=== PATIENT | male | born 1965 | race Caucasian/White ===

== ENCOUNTER 2017-07-02 13:02 | Emergency (ER) | payer OTHER ==
--- NOTE | 2017-07-02 13:24 | ED ---
General Adult HPI - General Chief complaint: Abdominal Pain Stated complaint: Sent by PCP Time Seen by Provider: 07/02/17 13:24 Source: patient Mode of arrival: ambulatory Limitations: no limitations - History of Present Illness Initial comments: Bin is morbidly obese 52 yo male with PMH of epididymitis in the past who presents to the emergency department today for evaluation of scrotal pain. Patient reports that in the past after having episodes of diarrhea he has developed epididymitis, which is required antibiotic therapy. Patient reports that approximately 3 days ago he developed diarrhea which persisted throughout the day but has subsequently resolved. Yesterday evening he noticed some swelling and tenderness of his testicles, he elevated his testicles and applied ice. Patient reports that he went to work but his testicular pain continued to worsen so he sought care at a urgent care who advised him to come to the hospital for further imaging including ultrasound. Patient denies any fevers, chills, abdominal pain. 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 He denies any dysuria or hematuria. - Related Data Home Medications Medication Instructions Recorded Confirmed Atorvastatin [Lipitor] 10 mg PO DAILY 08/11/15 07/02/17 metFORMIN HCL [Glucophage] 1,000 mg PO BID 08/11/15 07/02/17 Losartan Potassium 100 mg PO DAILY 07/02/17 07/02/17 Pioglitazone [Actos] 30 mg PO DAILY 07/02/17 07/02/17 amLODIPine [Norvasc] 5 mg PO DAILY 07/02/17 07/02/17 glipiZIDE [Glucotrol] 5 mg PO AC-BID 07/02/17 07/02/17 Previous Rx's Medication Instructions Recorded Levofloxacin [Levaquin] 750 mg PO DAILY 5 Days #5 tab 07/02/17 Allergies Allergy/AdvReac Type Severity Reaction Status Date / Time No Known Allergies Allergy Verified 07/02/17 14:46 Review of Systems ROS Statement: Those systems with pertinent positive or pertinent negative responses have been documented in the HPI. ROS Other: All systems not noted in ROS Statement are negative. Past Medical History Past Medical History: Diabetes Mellitus, Hyperlipidemia, Hypertension Additional Past Medical History / Comment(s): skin tags History of Any Multi-Drug Resistant Organisms: None Reported Past Surgical History: Adenoidectomy, Appendectomy, Tonsillectomy Additional Past Surgical History / Comment(s): circumsion Past Anesthesia/Blood Transfusion Reactions: No Reported Reaction Past Psychological History: No Psychological Hx Reported Smoking Status: Former smoker Past Alcohol Use History: Rare Past Drug Use History: None Reported - Past Family History Mother Family Medical History: Cancer, Diabetes Mellitus Additional Family Medical History / Comment(s): ca: colon Father Family Medical History: Diabetes Mellitus, Hyperlipidemia, Myocardial Infarction ([place]) Additional Family Medical History / Comment(s): from [place], "[place] was d/t an illness, that caused the heart attack", kidney disease General Exam Limitations: no limitations General appearance: alert, in no apparent distress Head exam: Present: atraumatic, normocephalic Eye exam: Present: normal appearance, PERRL ENT exam: Present: normal exam Neck exam: Present: normal inspection Respiratory exam: Present: normal lung sounds bilaterally. Absent: respiratory distress Cardiovascular Exam: Present: regular rate GI/Abdominal exam: Present: soft. Absent: distended, tenderness Rectal exam: Present: deferred exam: Present: testicular tenderness (Enlarged epididymis on the left, no tenderness to palpation of the right testicle or epididymis), scrotal swelling ( burried penis, able to visualize the glans, normal skin, no erythema or skin breakdown noted), circumcision, other (. Penis). Absent: urethral discharge, vertical testicular lie Extremities exam: Present: normal inspection Back exam: Present: normal inspection Neurological exam: Present: alert, oriented X3 Psychiatric exam: Present: normal affect, normal mood Skin exam: Present: warm, dry, intact Course Vital Signs 07/02/17 07/02/17 13:04 15:02 Temperature 97.6 F 98.2 F Pulse Rate 98 72 Respiratory 18 20 Rate Blood Pressure 144/88 132/68 O2 Sat by Pulse 99 99 Oximetry Medical Decision Making - Medical Decision Making Patient was seen and evaluated, history was obtained from the patient Physical exam with enlarged left epididymis, tenderness to palpation Physical exam is concerning for epididymitis, there is no improvement in pain with elevation of the testicle, this time I have a low suspicion for testicular torsion however I will order a ultrasound to evaluate Urinalysis with evidence of a urinary tract infection, urine culture was ordered Ultrasound with normal blood flow, enlarged vessels which could be suggestive of epididymitis or varicocele At this time I will discharge the patient home with oral antibiotics, patient was advised to follow-up with urology, he does have an established urologist whom he has not seen an approximately 1-2 years however he states he was not happy with the care he received from a urologist would like referral to urology on-call today. Referral was given. Patient was advised that if he is unable to establish a follow-up appointment with urology in the next 1 week he needs to follow up with his primary care physician for repeat urinalysis. I advised the patient that should he develop any worsening scrotal pain, redness, swelling or any new or concerning symptoms to return to the emergency department immediately for reevaluation. Patient expressed understanding of the plan for discharge home with oral antibiotics, alternating Tylenol and Motrin for analgesia and return to the ER if needed. - Lab Data Lab Results 07/02/17 Range/Units 13:45 Urine Color Yellow Urine Appearance Cloudy (Clear) Urine pH 6.0 (5.0-8.0) Ur Specific [place] 1.024 (1.001-1.035) Urine Protein Trace H (Negative) Urine Glucose (UA) 1+ H (Negative) Urine Ketones Negative (Negative) Urine Blood Trace H (Negative) Urine Nitrite Negative (Negative) Urine Bilirubin Negative (Negative) Urine Urobilinogen <2.0 (<2.0) mg/dL Ur Leukocyte Esterase Large H (Negative) Urine RBC 19 H (0-5) /hpf Urine WBC 145 H (0-5) /hpf Ur Squamous Epith Cells 4 (0-4) /hpf Urine Mucus Rare H (None) /hpf Disposition Clinical Impression: UTI (urinary tract infection), Acquired buried penis, Epididymitis Disposition: HOME SELF-CARE Condition: Good Instructions: Urinary Tract Infection in Men (ED) Additional Instructions: Call urologist today to establish a follow-up appointment, if you are unable to see urology in the next 1 week he needed establish a follow-up appointment with your primary care physician for repeat urinalysis. Should she develop any worsening testicular pain, redness, swelling or any new or concerning symptoms including fevers, chills, nausea or vomiting, inability to hold down year antibiotics he need to return to the emergency department immediately for reevaluation. Prescriptions: Levofloxacin [Levaquin] 750 mg PO DAILY 5 Days #5 tab Referrals: Devonte Juarez MD [Primary Care Provider] - 1-2 days Cristhian Krueger MD [STAFF PHYSICIAN] - 1-2 days Time of Disposition: 14:55
[2017-07-02 14:00] LABS: Appearance,Urine Cloudy (Clear); Bilirubin,Urine Negative (Negative); Blood,Urine Trace (Negative); Color,Urine Yellow; Glucose,Urine (UA) 1+ (Negative); Ketones,Urine Negative (Negative); Leukocyte Esterase,Urine Large (Negative); Mucus,Urine Rare /hpf; Nitrite,Urine Negative (Negative); Protein,Urine Trace (Negative); RBC,Urine 19 /hpf (0-5); Specific Gravity,Urine 1.024 (1.001-1.035); Squamous Epithelial Cell,Urine 4 /hpf (0-4); Urobilinogen,Urine <2.0 mg/dL (<2.0); WBC,Urine 145 /hpf (0-5)
--- NOTE | 2017-07-02 14:37 | US ---
EXAMINATION TYPE: US scrotum with doppler. Grayscale and color Doppler Duplex imaging performed of lali simmons scrotum. DATE OF EXAM: 07/02/2017 COMPARISON: 04/25/2009) CLINICAL HISTORY: Pain. EXAM MEASUREMENTS: TESTICLES: Right Testicle: 4.7 x 2.7 x 3.1 cm Left Testicle: 4.0 x 2.7 x 3.2 cm EPIDIDYMIS HEAD: Right Epididymis: 1.4 cm Left Epididymis: 1.4 cm Doppler performed to assess for testicular vascularity; good bilateral color flow and waveforms are s een. There is no evidence of testicular torsion. Presence of hydroceles: Bilateral measuring 2.3 X 1.5 X 2.6 on the right, left septated measuring 2. 9 x 1.7 x 1.9cm Presence of varicoceles: no Epididymal cyst on right measuring 0.7cm , marked increased vascularity in left epididymitis, suggest meek of epididymidis IMPRESSION: 1. There are bilateral hydroceles with a somewhat septated complicated appearance on the left. Theref ore, the differential diagnosis includes spermatoceles, hydrocele, or hematocele. Similar findings a re reported on the previous exam, Correlate clinically. 2. There is an epididymal head cyst on the right measuring 0.7 cm. Findings stable from previous. 3. There is increased flow to the left epididymis correlate for left epididymitis
[2017-07-02] MEDS ORDERED: LEVOFLOXACIN 750 MG TAB PO STA (14:52)
[2017-07-02 15:04] VITALS: BP 132/68; PULSE 72; RESP 20; TEMP 98.2
== END 2017-07-02 15:13 | disposition home or self-care (01) ==
LOC: EC 13:02
DX: N45.1 Epididymitis (principal); N39.0 Urinary tract infection, site not specified; N48.83 Acquired buried penis; E11.9 Type 2 diabetes mellitus without complications; E78.5 Hyperlipidemia, unspecified; I10 Essential (primary) hypertension; E66.01 Morbid (severe) obesity due to excess calories; Z68.42 Body mass index [BMI] 45.0-49.9, adult; Z87.891 Personal history of nicotine dependence; Z79.84 Long term (current) use of oral hypoglycemic drugs; Z79.899 Other long term (current) drug therapy
CPT/HCPCS: 76870; 81001; 87086; 93975; 99284

== ENCOUNTER 2017-10-08 10:30 | Inpatient (IN) | payer OTHER ==
[2017-10-08] MEDS ORDERED: ACETAMINOPHEN TAB 500 MG TAB PO STA (10:47)
--- NOTE | 2017-10-08 10:51 | ED ---
General Adult HPI - General Chief complaint: Urogenital Stated complaint: Unable to Urinate Time Seen by Provider: 10/08/17 10:40 Source: patient, RN notes reviewed Mode of arrival: wheelchair Limitations: no limitations - History of Present Illness Initial comments: Patient is a pleasant 52-year-old male presenting to the emergency Department with urinary problems. Onset of symptoms was last night. Patient does have dysuria. Patient has not been able to urinate however did lose control while in the emergency department. Patient was able to get some into a cup. Patient does complain of myalgias and chills. No abdominal pain. No back pain. Patient did have a minimal amount of diarrhea. Patient states this occurred more while straining trying to urinate. No history of similar symptoms previously. - Related Data Home Medications Medication Instructions Recorded Confirmed Atorvastatin [Lipitor] 10 mg PO DAILY 08/11/15 10/08/17 metFORMIN HCL [Glucophage] 1,000 mg PO BID 08/11/15 10/08/17 Losartan Potassium 100 mg PO DAILY 07/02/17 10/08/17 Pioglitazone [Actos] 30 mg PO DAILY 07/02/17 10/08/17 amLODIPine [Norvasc] 5 mg PO DAILY 07/02/17 10/08/17 glipiZIDE [Glucotrol] 5 mg PO AC-BID 07/02/17 10/08/17 Aspirin EC [Ecotrin Low Dose] 81 mg PO DAILY 10/08/17 10/08/17 Allergies Allergy/AdvReac Type Severity Reaction Status Date / Time No Known Allergies Allergy Verified 10/08/17 10:53 Review of Systems ROS Statement: Those systems with pertinent positive or pertinent negative responses have been documented in the HPI. ROS Other: All systems not noted in ROS Statement are negative. Constitutional: Reports: chills Eyes: Denies: eye pain ENT: Denies: ear pain Respiratory: Denies: cough, dyspnea Cardiovascular: Denies: chest pain Endocrine: Reports: fatigue Gastrointestinal: Reports: as per HPI, diarrhea. Denies: abdominal pain, vomiting Genitourinary: Reports: urgency, dysuria Musculoskeletal: Denies: back pain Skin: Denies: rash Neurological: Denies: weakness Past Medical History Past Medical History: Diabetes Mellitus, Hyperlipidemia, Hypertension Additional Past Medical History / Comment(s): skin tags History of Any Multi-Drug Resistant Organisms: None Reported Past Surgical History: Adenoidectomy, Appendectomy, Tonsillectomy Additional Past Surgical History / Comment(s): circumsion Past Anesthesia/Blood Transfusion Reactions: No Reported Reaction Past Psychological History: No Psychological Hx Reported Smoking Status: Former smoker Past Alcohol Use History: Rare Past Drug Use History: None Reported - Past Family History Mother Family Medical History: Cancer, Diabetes Mellitus Additional Family Medical History / Comment(s): ca: colon Father Family Medical History: Diabetes Mellitus, Hyperlipidemia, Myocardial Infarction ([place]) Additional Family Medical History / Comment(s): from [place], "[place] was d/t an illness, that caused the heart attack", kidney disease General Exam Limitations: no limitations General appearance: alert, in no apparent distress, obese Head exam: Present: atraumatic Eye exam: Present: normal appearance Neck exam: Present: normal inspection Respiratory exam: Present: normal lung sounds bilaterally Cardiovascular Exam: Present: regular rate, normal rhythm GI/Abdominal exam: Present: soft. Absent: tenderness exam: Present: normal inspection. Absent: testicular tenderness, urethral discharge, scrotal swelling Extremities exam: Present: normal inspection Neurological exam: Present: alert Psychiatric exam: Present: normal affect, normal mood Skin exam: Present: normal color. Absent: rash Course Vital Signs 10/08/17 10/08/17 10:34 11:15 Temperature 100.1 F H Pulse Rate 119 H 154 H Respiratory 20 35 H Rate Blood Pressure 132/81 138/69 O2 Sat by Pulse 98 96 Oximetry - Reevaluation(s) Reevaluation #1: 10/08/17 11:56 Patient does meet criteria for severe sepsis diagnosed at 11:56 AM. IV fluid bolus has been provided. Lactic acid and blood culture has been ordered. IV antibiotics have been ordered. Medical Decision Making - Medical Decision Making Patient reevaluated and updated. Case was discussed in detail with Dr. padilla , who will admit for Dr. Lantigua. - Lab Data Result diagrams: 10/08/17 11:00 10/08/17 11:00 Lab Results 10/08/17 10/08/17 10/08/17 Range/Units 11:00 11:00 11:00 WBC 9.5 (3.8-10.6) k/uL RBC 4.54 (4.30-5.90) m/uL Hgb 14.4 (13.0-17.5) gm/dL Hct 41.8 (39.0-53.0) % MCV 92.2 (80.0-100.0) fL MCH 31.8 (25.0-35.0) pg MCHC 34.4 (31.0-37.0) g/dL RDW 14.7 (11.5-15.5) % Plt Count 159 (150-450) k/uL Neutrophils % 90 % Lymphocytes % 7 % Monocytes % 1 % Eosinophils % 2 % Basophils % 0 % Neutrophils # 8.5 H (1.3-7.7) k/uL Lymphocytes # 0.6 L (1.0-4.8) k/uL Monocytes # 0.1 (0-1.0) k/uL Eosinophils # 0.2 (0-0.7) k/uL Basophils # 0.0 (0-0.2) k/uL Sodium 139 (137-145) mmol/L Potassium 3.8 (3.5-5.1) mmol/L Chloride 103 (98-107) mmol/L Carbon Dioxide 24 (22-30) mmol/L Anion Gap 12 mmol/L BUN 11 (9-20) mg/dL Creatinine 0.70 (0.66-1.25) mg/dL Est GFR (CKD-EPI)AfAm >90 (>60 ml/min/1.73 sqM) Est GFR (CKD-EPI)NonAf >90 (>60 ml/min/1.73 sqM) Glucose 152 H (74-99) mg/dL Plasma Lactic Acid Bala 2.4 H* (0.7-2.0) mmol/L Calcium 9.5 (8.4-10.2) mg/dL Total Bilirubin 0.9 (0.2-1.3) mg/dL AST 23 (17-59) U/L ALT 46 (21-72) U/L Alkaline Phosphatase 65 (38-126) U/L Total Protein 6.7 (6.3-8.2) g/dL Albumin 4.0 (3.5-5.0) g/dL Urine Color Urine Appearance (Clear) Urine pH (5.0-8.0) Ur Specific [place] (1.001-1.035) Urine Protein (Negative) Urine Glucose (UA) (Negative) Urine Ketones (Negative) Urine Blood (Negative) Urine Nitrite (Negative) Urine Bilirubin (Negative) Urine Urobilinogen (<2.0) mg/dL Ur Leukocyte Esterase (Negative) Urine WBC (0-5) /hpf Urine WBC Clumps (None) /hpf Urine Mucus (None) /hpf 10/08/17 Range/Units 11:00 WBC (3.8-10.6) k/uL RBC (4.30-5.90) m/uL Hgb (13.0-17.5) gm/dL Hct (39.0-53.0) % MCV (80.0-100.0) fL MCH (25.0-35.0) pg MCHC (31.0-37.0) g/dL RDW (11.5-15.5) % Plt Count (150-450) k/uL Neutrophils % % Lymphocytes % % Monocytes % % Eosinophils % % Basophils % % Neutrophils # (1.3-7.7) k/uL Lymphocytes # (1.0-4.8) k/uL Monocytes # (0-1.0) k/uL Eosinophils # (0-0.7) k/uL Basophils # (0-0.2) k/uL Sodium (137-145) mmol/L Potassium (3.5-5.1) mmol/L Chloride (98-107) mmol/L Carbon Dioxide (22-30) mmol/L Anion Gap mmol/L BUN (9-20) mg/dL Creatinine (0.66-1.25) mg/dL Est GFR (CKD-EPI)AfAm (>60 ml/min/1.73 sqM) Est GFR (CKD-EPI)NonAf (>60 ml/min/1.73 sqM) Glucose (74-99) mg/dL Plasma Lactic Acid Bala (0.7-2.0) mmol/L Calcium (8.4-10.2) mg/dL Total Bilirubin (0.2-1.3) mg/dL AST (17-59) U/L ALT (21-72) U/L Alkaline Phosphatase (38-126) U/L Total Protein (6.3-8.2) g/dL Albumin (3.5-5.0) g/dL Urine Color Light Yellow Urine Appearance Cloudy (Clear) Urine pH 6.0 (5.0-8.0) Ur Specific [place] 1.011 (1.001-1.035) Urine Protein Negative (Negative) Urine Glucose (UA) Negative (Negative) Urine Ketones Negative (Negative) Urine Blood Negative (Negative) Urine Nitrite Positive (Negative) Urine Bilirubin Negative (Negative) Urine Urobilinogen <2.0 (<2.0) mg/dL Ur Leukocyte Esterase Large H (Negative) Urine WBC 99 H (0-5) /hpf Urine WBC Clumps Few H (None) /hpf Urine Mucus Rare H (None) /hpf - Radiology Data Radiology results: image reviewed (Chest x-ray shows no acute process. Demerol x-ray shows no acute process.) Critical Care Time Critical Care Time: Yes Total Critical Care Time: 33 Disposition Clinical Impression: Urinary tract infection, Severe sepsis Disposition: ADMITTED IP TO THIS [facility] Condition: Serious Referrals: Devonte Juarez MD [Primary Care Provider] - 1-2 days Decision Time: 11:56
[2017-10-08] MEDS: SODIUM CHLORIDE 0.9% 500 ML IV SCH (11:15)
[2017-10-08 11:36] LABS: Basophils % (A) 0 %; Eosinophils # (A) 0.2 k/uL (0-0.7); Eosinophils % (A) 2 %; HCT 41.8 % (39.0-53.0); HGB 14.4 gm/dL (13.0-17.5); Lymphocytes # (A) 0.6 k/uL (1.0-4.8); Lymphocytes % (A) 7 %; MCH 31.8 pg (25.0-35.0); MCHC 34.4 g/dL (31.0-37.0); MCV 92.2 fL (80.0-100.0); Mean Platelet Volume 6.8; Monocytes # (A) 0.1 k/uL (0-1.0); Monocytes % (A) 1 %; Neutrophils # (A) 8.5 k/uL (1.3-7.7); Neutrophils % (A) 90 %; Platelet Count 159 k/uL (150-450); RBC 4.54 m/uL (4.30-5.90); RDW 14.7 % (11.5-15.5); WBC 9.5 k/uL (3.8-10.6)
[2017-10-08 11:40] LABS: Appearance,Urine Cloudy (Clear); Bilirubin,Urine Negative (Negative); Blood,Urine Negative (Negative); Color,Urine Light Yellow; Glucose,Urine (UA) Negative (Negative); Ketones,Urine Negative (Negative); Leukocyte Esterase,Urine Large (Negative); Mucus,Urine Rare /hpf; Nitrite,Urine Positive (Negative); Protein,Urine Negative (Negative); Specific Gravity,Urine 1.011 (1.001-1.035); Urobilinogen,Urine <2.0 mg/dL (<2.0); WBC,Urine 99 /hpf (0-5)
[2017-10-08 11:44] LABS: ALT 46 U/L (21-72); AST 23 U/L (17-59); Alkaline Phosphatase 65 U/L (38-126); Anion Gap 12 mmol/L; Blood Urea Nitrogen 11 mg/dL (9-20); Calcium 9.5 mg/dL (8.4-10.2); Carbon Dioxide 24 mmol/L (22-30); Chloride 103 mmol/L (98-107); Glucose 152 mg/dL (74-99); Potassium 3.8 mmol/L (3.5-5.1); Sodium 139 mmol/L (137-145); Total Bilirubin 0.9 mg/dL (0.2-1.3); Total Protein 6.7 g/dL (6.3-8.2)
[2017-10-08] MEDS ORDERED: cefTRIAXone IN SWFI 2,000 MG/20 ML SYRINGE IVP STA (11:48)
[2017-10-08] MEDS ORDERED: SODIUM CHLORIDE 0.9% 1,000 ML IV STA (11:49)
[2017-10-08] MEDS ORDERED: SODIUM CHLORIDE 0.9% 500 ML IV STA (11:49)
--- NOTE | 2017-10-08 11:50 | XR ---
EXAMINATION TYPE: XR chest 2V DATE OF EXAM: 10/08/2017 COMPARISON: NONE HISTORY: Fever per order. TECHNIQUE: Frontal and lateral views of the chest are obtained. FINDINGS: There is no focal air space opacity, pleural effusion, or pneumothorax seen. The cardiac silhouette size is within normal limits. The osseous structures are intact. IMPRESSION: No suspicious acute infiltrate.
[2017-10-08] MEDS ORDERED: SODIUM CHLORIDE 0.9% 600 ML IV STA (11:53)
--- NOTE | 2017-10-08 11:54 | XR ---
Abdomen HISTORY: Dysuria, difficulty urinating Frontal view of the abdomen on 2 images The lung bases are clear. There is no evident bowel obstruction or pneumoperitoneum. Spinal curvature is noted, there is associated degenerative disc disease and the visualized spine. No evident patholo gic calcification. IMPRESSION: Nonobstructive bowel gas pattern.
[2017-10-08] MEDS ORDERED: NALOXONE 0.4 MG/ML 1 ML VIAL IV PRN (11:57)
[2017-10-08] MEDS ORDERED: IBUPROFEN 400 MG TAB PO PRN (11:57)
[2017-10-08] MEDS: SODIUM CHLORIDE 0.9% 1,000 ML IV STA ×2 (13:23→15:00)
[2017-10-08] MEDS: SODIUM CHLORIDE 0.9% 1,000 ML IV SCH ×2 (15:00→21:47)
[2017-10-08 16:48] LABS: Glucose,Whole Blood 189 mg/dL (75-99)
[2017-10-08] MEDS: ACETAMINOPHEN TAB 325 MG TAB PO PRN (17:40)
[2017-10-08] MEDS: glipiZIDE 5 MG TAB PO SCH (19:13)
[2017-10-08] MEDS: metFORMIN 500 MG TAB PO SCH (19:13)
[2017-10-08 21:16] LABS: Glucose,Whole Blood 114 mg/dL (75-99)
[2017-10-08] MEDS: cefTRIAXone IN SWFI 1,000 MG/10 ML SYRINGE IVP SCH (21:46)
--- NOTE | 2017-10-08 22:37 | PN ---
PROGRESS NOTE DATE OF ADMISSION: 10/08/2017 DATE OF SERVICE: 10/08/2017 PRESENTING COMPLAINT: Fever, chills. HISTORY OF PRESENTING COMPLAINT: This is a very pleasant 52-year-old patient of Dr. Juarez whose chronic stable medical conditions include diabetes, hypertension, hyperlipidemia, osteoarthritis. Patient is accompanied by his and daughter. Yesterday evening the patient was complaining of pain in the pelvic area, and today when he went to work this morning suddenly the patient stopped making urine and started to develop fever, chills, feeling rundown, tired, weak, dizzy, lightheaded. Patient was brought into the ER. Patient's urine came back very infected-appearing and he had a fever. Patient was also tachycardic. The patient lost his appetite. Patient was also having bilateral flank pain. He was admitted for the same. Patient denies any other genitourinary history in the past. REVIEW OF SYSTEMS: CONSTITUTIONAL: Fever, chills, tired, rundown. HEENT: Dizzy. RESPIRATORY: None. CARDIOVASCULAR: None. GASTROINTESTINAL: None. GENITOURINARY: As above. MUSCULOSKELETAL: Arthritic pain in joints. DERMATOLOGICAL: None. HEMATOLOGICAL: None. LYMPHATICS: None. PSYCHIATRY: None. NEUROLOGICAL: None. PAST MEDICAL HISTORY: 1. Diabetes. 2. Hyperlipidemia. 3. Hypertension. 4. Arthritis in the spine. PAST SURGICAL HISTORY: 1. Adenoidectomy. 2. Appendectomy. 3. Tonsillectomy. 4. Circumcision. 5. Colonoscopy with benign polypectomy. SOCIAL HISTORY: Patient resides with his spouse. He works in a factory. The patient smoked for 26 years, stopped in 1999. Alcohol rarely. FAMILY HISTORY: Diabetes, colon cancer. HOME MEDICATIONS: 1. Glucophage 1000 mg b.i.d. 2. Glucotrol 5 mg b.i.d. 3. Norvasc 5 mg p.o. daily. 4. Actos 30 mg p.o. daily. 5. Losartan 100 mg p.o. daily. 6. Lipitor 10 mg p.o. daily. 7. Aspirin 81 mg p.o. daily. ALLERGIES: NONE. PHYSICAL EXAMINATION: On examination, temperature 100.3, pulse up to 150, respiration 20, blood pressure 132/81, pulse ox 98% on room air. GENERAL APPEARANCE: Morbidly obese; BMI 44.2. Lying in bed, very tired-appearing. EYES: Pupils equal. Conjunctivae normal. HEENT: External appearance of nose and ears normal. Oral cavity dry mucous membrane. NECK: Short, thick. JVD unable to assess. Mass not palpable. RESPIRATORY: Effort normal. LUNGS: Distant breath sounds. CARDIOVASCULAR: First and second sounds normal. No edema. ABDOMEN: Distended, soft. Liver and spleen not palpable. Bilateral renal angle tenderness. Suprapubic tenderness. LYMPHATIC: No lymph node palpable in neck or axillae. PSYCHIATRY: Alert and oriented x3. Mood and affect normal. NEUROLOGICAL: Pupils equal. Cranial nerves grossly intact. Power and sensation grossly intact. INVESTIGATIONS: White count 9.5, hemoglobin 14.4, neutrophils 8.5, potassium 3.8. Lactic acid 2.4. UA positive for leukocyte esterase, WBC. Abdominal x-ray film, interpreted by me, shows some gaseous prominence. No air fluid level. Chest x-ray film, interpreted by me, shows cardiothoracic ratio at the upper limit of normal. Lung mckeon are clear. ASSESSMENT: 1. Acute complicated pyelonephritis causing sepsis in a patient with fever, tachycardia and a left shift of neutrophils causing lactic acidosis. 2. Morbid obesity with body mass index of 44.2. 3. Diabetes mellitus, type 2, on oral hypoglycemic. 4. Essential hypertension. 5. Hyperlipidemia. PLAN: Patient was started on IV ceftriaxone. Home medications are resumed. Since the patient has a poor appetite, we will hold off patient's Glucotrol. Accu-Cheks will be followed. Will give patient lactated Ringer's at 200 mL/hour. I expect patient to respond in about 24 hours. Care was discussed with the patient and family at the bedside. Questions were answered. MMODL / IJN: [id number] /
[2017-10-08] MEDS: LACTATED RINGERS 1,000 ML IV SCH (22:55)
[2017-10-08] MEDS: ENOXAPARIN 40 MG/0.4 ML SYRINGE SQ SCH (22:56)
[2017-10-08] MEDS ORDERED: ACETAMINOPHEN TAB 500 MG TAB ONE (23:15)
[2017-10-09] MEDS ORDERED: IBUPROFEN 400 MG TAB ONE (01:05)
[2017-10-09 06:02] LABS: Anion Gap 7 mmol/L; Blood Urea Nitrogen 13 mg/dL (9-20); Calcium 7.9 mg/dL (8.4-10.2); Carbon Dioxide 27 mmol/L (22-30); Chloride 105 mmol/L (98-107); Glucose 90 mg/dL (74-99); Potassium 3.6 mmol/L (3.5-5.1); Sodium 139 mmol/L (137-145)
[2017-10-09 06:47] LABS: Basophils % (A) 0 %; Eosinophils % (A) 0 %; HCT 36.9 % (39.0-53.0); HGB 12.2 gm/dL (13.0-17.5); Lymphocytes # (A) 0.5 k/uL (1.0-4.8); Lymphocytes % (A) 5 %; MCH 31.1 pg (25.0-35.0); MCHC 33.1 g/dL (31.0-37.0); MCV 93.9 fL (80.0-100.0); Mean Platelet Volume 6.6; Monocytes # (A) 0.5 k/uL (0-1.0); Monocytes % (A) 5 %; Neutrophils % (A) 89 %; Platelet Count 122 k/uL (150-450); RBC 3.93 m/uL (4.30-5.90); RDW 14.6 % (11.5-15.5); WBC 11.3 k/uL (3.8-10.6)
[2017-10-09] MEDS: LACTATED RINGERS 1,000 ML IV SCH ×4 (06:52→18:16)
[2017-10-09 07:19] LABS: Glucose,Whole Blood 101 mg/dL (75-99)
[2017-10-09] MEDS: metFORMIN 500 MG TAB PO SCH ×2 (08:51→17:53)
[2017-10-09] MEDS: amLODIPine 5 MG TAB PO SCH (08:51)
[2017-10-09] MEDS: glipiZIDE 5 MG TAB PO SCH ×2 (08:51→17:53)
[2017-10-09] MEDS: LOSARTAN 50 MG TAB PO SCH (08:52)
[2017-10-09] MEDS: ATORVASTATIN 10 MG TAB PO SCH (08:52)
[2017-10-09] MEDS: ENOXAPARIN 40 MG/0.4 ML SYRINGE SQ SCH (08:52)
[2017-10-09] MEDS: ASPIRIN 81 MG PO SCH (08:52)
[2017-10-09] MEDS: cefTRIAXone IN SWFI 1,000 MG/10 ML SYRINGE IVP SCH ×2 (08:52→21:35)
[2017-10-09] MEDS: PIOGLITAZONE 30 MG TAB PO SCH (08:52)
[2017-10-09] MEDS: ACETAMINOPHEN TAB 325 MG TAB PO PRN ×2 (10:34→18:15)
[2017-10-09 12:50] LABS: Glucose,Whole Blood 62 mg/dL (75-99)
[2017-10-09 12:50] LABS: Glucose,Whole Blood 71 mg/dL (75-99)
[2017-10-09 17:23] LABS: Glucose,Whole Blood 86 mg/dL (75-99)
[2017-10-09 20:54] LABS: Glucose,Whole Blood 157 mg/dL (75-99)
[2017-10-10] MEDS: LACTATED RINGERS 1,000 ML IV SCH ×5 (00:46→20:23)
--- NOTE | 2017-10-10 05:41 | PN ---
PROGRESS NOTE DATE OF SERVICE: 10/09/2017 PRESENTING COMPLAINT: Acute pyelonephritis. INTERVAL HISTORY: This patient presented with acute severe pyelonephritis with sepsis. Is a bit better today. Did tolerate diet. Fevers are coming down. Less tired. is present. REVIEW OF SYSTEMS: Review of systems done for constitutional, cardiovascular, GI, pulmonary; relevant findings as above. CURRENT MEDICATIONS: Current medications include IV fluids at 200 mL an hour, on IV ceftriaxone. PHYSICAL EXAMINATION: On examination, T-max 101 in the night, now afebrile this afternoon, pulse 55, respiration 17, blood pressure 145/80, pulse ox 96% on room air. GENERAL APPEARANCE: Lying in bed. Less tired appearing. EYES: Pupils equal. Conjunctivae normal. HENT: External appearance of nose and ears normal. Oral cavity dry. NECK: JVD not raised. Mass not palpable. RESPIRATORY: Effort normal. LUNGS: Distant breath sounds. CARDIOVASCULAR: First and second sounds normal. No edema. ABDOMEN: Distended, soft. Liver and spleen not palpable. Bilateral renal angle tenderness is slightly improved. PSYCHIATRY: Alert and oriented x3. Mood and affect normal. INVESTIGATIONS: White count 11.3. Potassium 3.6. Urine culture negative. ASSESSMENT: 1. Acute complicated pyelonephritis causing sepsis present on admission causing lactic acid, however, there is some clinical improvement. 2. Morbid obesity, body mass index 44.2. 3. Diabetes mellitus type 2 on oral hypoglycemic. 4. Essential hypertension. 5. Hyperlipidemia. 6. Patient's blood cultures, one set of cultures growing Gram-positive cocci in chains. PLAN: The patient's appetite is improving. Patient has told his to get some food from home. We will keep the patient on 200 mL of lactated Ringer's. Would expect the patient at least 24 hours to be afebrile. We will see how the patient does. I told the patient to be out of bed. Will follow. MMODL / IJN: [id number] /
[2017-10-10 07:34] LABS: Glucose,Whole Blood 87 mg/dL (75-99)
[2017-10-10] MEDS: cefTRIAXone IN SWFI 1,000 MG/10 ML SYRINGE IVP SCH ×2 (08:11→20:23)
[2017-10-10] MEDS: LOSARTAN 50 MG TAB PO SCH (08:12)
[2017-10-10] MEDS: metFORMIN 500 MG TAB PO SCH ×2 (08:12→17:20)
[2017-10-10] MEDS: ENOXAPARIN 40 MG/0.4 ML SYRINGE SQ SCH (08:12)
[2017-10-10] MEDS: glipiZIDE 5 MG TAB PO SCH ×2 (08:12→17:18)
[2017-10-10] MEDS: ASPIRIN 81 MG PO SCH (08:12)
[2017-10-10] MEDS: PIOGLITAZONE 30 MG TAB PO SCH (08:12)
[2017-10-10] MEDS: amLODIPine 5 MG TAB PO SCH (08:12)
[2017-10-10] MEDS: ATORVASTATIN 10 MG TAB PO SCH (08:15)
[2017-10-10 08:54] LABS: Basophils % (A) 0 %; Eosinophils # (A) 0.2 k/uL (0-0.7); Eosinophils % (A) 3 %; HGB 12.9 gm/dL (13.0-17.5); Lymphocytes # (A) 0.8 k/uL (1.0-4.8); Lymphocytes % (A) 12 %; MCH 30.8 pg (25.0-35.0); MCV 93.2 fL (80.0-100.0); Mean Platelet Volume 7.3; Monocytes # (A) 0.3 k/uL (0-1.0); Monocytes % (A) 5 %; Neutrophils # (A) 5.2 k/uL (1.3-7.7); Neutrophils % (A) 78 %; Platelet Count 106 k/uL (150-450); RBC 4.18 m/uL (4.30-5.90); RDW 14.3 % (11.5-15.5); WBC 6.7 k/uL (3.8-10.6)
[2017-10-10 09:12] LABS: Anion Gap 8 mmol/L; Blood Urea Nitrogen 10 mg/dL (9-20); Calcium 8.7 mg/dL (8.4-10.2); Carbon Dioxide 26 mmol/L (22-30); Chloride 107 mmol/L (98-107); Glucose 112 mg/dL (74-99); Sodium 141 mmol/L (137-145)
[2017-10-10 12:06] LABS: Glucose,Whole Blood 62 mg/dL (75-99)
[2017-10-10 12:06] LABS: Glucose,Whole Blood 82 mg/dL (75-99)
[2017-10-10 17:17] LABS: Glucose,Whole Blood 98 mg/dL (75-99)
[2017-10-10] MEDS: ACETAMINOPHEN TAB 325 MG TAB PO PRN (17:22)
[2017-10-10 20:45] LABS: Glucose,Whole Blood 137 mg/dL (75-99)
--- NOTE | 2017-10-10 21:24 | PN ---
PROGRESS NOTE DATE OF SERVICE: 10/10/2017 PRESENTING COMPLAINT: Fever. INTERVAL HISTORY: The patient presented with acute severe pyelonephritis with sepsis. Continues to feel better. Appetite is greatly improved. Fever has come down. Blood cultures did grow alpha hemolytic strep. REVIEW OF SYSTEMS: Done for constitutional, cardiovascular, GI, pulmonary; relevant findings as above. CURRENT MEDICATIONS: Reviewed that include: 1. IV fluids and. 2. IV ceftriaxone. EXAMINATION: Afebrile, pulse 85, respirations 16, blood pressure 123/70, pulse ox 98% on room air. GENERAL APPEARANCE: Lying in bed, much improved. EYES: Pupils equal. Conjunctivae normal. HEENT: External nose and ears normal. Oral cavity normal. NECK: JVD not raised. Mass not palpable. RESPIRATORY: Effort normal. LUNGS: Decreased breath sounds. CARDIOVASCULAR: First and second sounds normal. No edema. ABDOMEN: Soft, nontender. Renal angle tenderness gone. PSYCHIATRY: Alert and oriented x3. Mood and affect were normal. INVESTIGATIONS: White count 6.7. Accu-Cheks noted. ASSESSMENT: 1. Acute complicated pyelonephritis causing sepsis, present on admission, causing lactic acidosis with also blood cultures positive for alpha hemolytic Streptococcus. The patient is clinically much improved. Appetite is greatly improved. Fever has come down. No white count. 2. Morbid obesity, BMI 44.2. 3. Diabetes mellitus type 2 on oral hypoglycemic, uncontrolled from hypoglycemia. 4. Essential hypertension. 5. Hyperlipidemia. PLAN: Repeat set of blood cultures was sent over. Patient is really doing much better. If continues to improve, then will discharge the patient. Because of hypoglycemia, will hold off patient's glipizide for now. MMODL / IJN: [id number] /
[2017-10-11] MEDS: LACTATED RINGERS 1,000 ML IV SCH ×3 (03:40→12:49)
[2017-10-11] MEDS: ACETAMINOPHEN TAB 325 MG TAB PO PRN (05:44)
[2017-10-11 06:22] VITALS: BP 166/52; PULSE 81; RESP 18; TEMP 98.2
[2017-10-11 07:42] LABS: Glucose,Whole Blood 114 mg/dL (75-99)
[2017-10-11] MEDS: ENOXAPARIN 40 MG/0.4 ML SYRINGE SQ SCH (08:14)
[2017-10-11] MEDS: cefTRIAXone IN SWFI 1,000 MG/10 ML SYRINGE IVP SCH (08:14)
[2017-10-11] MEDS: amLODIPine 5 MG TAB PO SCH (08:14)
[2017-10-11] MEDS: ASPIRIN 81 MG PO SCH (08:15)
[2017-10-11] MEDS: metFORMIN 500 MG TAB PO SCH (08:15)
[2017-10-11] MEDS: ATORVASTATIN 10 MG TAB PO SCH (08:15)
[2017-10-11] MEDS: PIOGLITAZONE 30 MG TAB PO SCH (08:15)
[2017-10-11] MEDS: LOSARTAN 50 MG TAB PO SCH (08:15)
[2017-10-11 09:14] LABS: Basophils % (A) 0 %; Eosinophils # (A) 0.2 k/uL (0-0.7); Eosinophils % (A) 4 %; HCT 38.2 % (39.0-53.0); HGB 12.4 gm/dL (13.0-17.5); Lymphocytes # (A) 1.2 k/uL (1.0-4.8); Lymphocytes % (A) 20 %; MCH 29.9 pg (25.0-35.0); MCHC 32.4 g/dL (31.0-37.0); MCV 92.1 fL (80.0-100.0); Mean Platelet Volume 7.4; Monocytes # (A) 0.3 k/uL (0-1.0); Monocytes % (A) 5 %; Neutrophils # (A) 3.9 k/uL (1.3-7.7); Neutrophils % (A) 67 %; Platelet Count 123 k/uL (150-450); RBC 4.14 m/uL (4.30-5.90); RDW 14.1 % (11.5-15.5); WBC 5.8 k/uL (3.8-10.6)
[2017-10-11 09:25] LABS: Anion Gap 8 mmol/L; Blood Urea Nitrogen 9 mg/dL (9-20); Calcium 9.1 mg/dL (8.4-10.2); Carbon Dioxide 28 mmol/L (22-30); Chloride 105 mmol/L (98-107); Glucose 160 mg/dL (74-99); Sodium 141 mmol/L (137-145)
[2017-10-11 11:58] LABS: Glucose,Whole Blood 111 mg/dL (75-99)
--- NOTE | 2017-10-12 06:47 | DS ---
DISCHARGE SUMMARY DATE OF ADMISSION: 10/08/17 DATE OF DISCHARGE: 10/11/17 FINAL DIAGNOSES: 1. Acute severe complicated pyelonephritis causing sepsis, present on admission, causing lactic acidosis and also blood cultures positive for alpha hemolytic Streptococcus. 2. Morbid obesity, BMI 44.2. 3. Diabetes mellitus type 2, uncontrolled from hypoglycemia. 4. Essential hypertension. 5. Hyperlipidemia. HOSPITAL COURSE: This very pleasant gentleman presented acute complicated urinary tract infection with pyelonephritis with tenderness in the flanks. Blood culture also came back positive as above. By the time of discharge patient doing greatly improved. There is no tenderness. Tolerating a diet, up and about. Afebrile. I talked to the patient at length today including weight loss measures. Questions answered. Because sugars were running a bit low, patient's Glucotrol was discontinued. On examination: Lungs are clear. Abdomen: Soft, nontender. No renal angle tenderness. White count is 5.8. The patient's repeat blood cultures were negative. Discussion and discharge planning more than 35 minutes. DISCHARGE MEDICATIONS: 1. Lipitor 10 mg a day. 2. Glucophage 1000 mg b.i.d. 3. Losartan 100 mg p.o. daily. 4. Actos 30 mg a day. 5. Norvasc 5 mg p.o. daily. 6. Aspirin 81 mg p.o. daily. 7. Keflex 500 mg q.6h, 28 capsules. 8. Discontinued Glucotrol. FOLLOWUP: Follow up with Dr. Juarez on November 19, 2017. The patient may return to work next . MMODL / IJN: [id number] /
== END 2017-10-11 15:37 | disposition home or self-care (01) | DRG 871 ==
LOC: EC 10:30 → 4MS4W 11:57
PROVIDERS: ADMIT Hospitalist; ATTEND Hospitalist
DX: A40.3 Sepsis due to Streptococcus pneumoniae (principal); R65.20 Severe sepsis without septic shock; N10 Acute pyelonephritis; Z68.41 Body mass index [BMI] 40.0-44.9, adult; E11.9 Type 2 diabetes mellitus without complications; E78.5 Hyperlipidemia, unspecified; I10 Essential (primary) hypertension; B95.3 Streptococcus pneumoniae as the cause of diseases classified elsewhere; E11.65 Type 2 diabetes mellitus with hyperglycemia; E66.01 Morbid (severe) obesity due to excess calories; M19.90 Unspecified osteoarthritis, unspecified site; M46.90 Unspecified inflammatory spondylopathy, site unspecified; Z90.49 Acquired absence of other specified parts of digestive tract; Z83.3 Family history of diabetes mellitus; Z87.891 Personal history of nicotine dependence; Z82.49 Family history of ischemic heart disease and other diseases of the circulatory system; Z79.82 Long term (current) use of aspirin; Z79.84 Long term (current) use of oral hypoglycemic drugs; Z79.899 Other long term (current) drug therapy; Z80.0 Family history of malignant neoplasm of digestive organs; Z98.890 Other specified postprocedural states
CPT/HCPCS: 36415; 51798; 71046; 74018; 80048; 80053; 81001; 83605; 85025; 87040; 87077; 87086; 87186; 96361; 96374; 99285

== ENCOUNTER → 2018-01-22 | Outpatient (CLI) | payer OTHER ==
--- NOTE | 2018-01-22 16:30 | US ---
EXAMINATION TYPE: US kidneys/renal and bladder DATE OF EXAM: 01/22/2018 COMPARISON: NONE CLINICAL HISTORY: N39.0 UTI. Hx of UTI's, no pain EXAM MEASUREMENTS: Right Kidney: 13.4 x 6.0 x 5.8 cm Left Kidney: 12.1 x 7.2 x 7.2 cm Limited visualization due to patient body habitus Right Kidney: Limited visualization. No hydronephrosis or masses seen Left Kidney: Limited visualization. No hydronephrosis or masses seen Bladder: Posterior bladder wall appears thickened = 7.4 mm. Anterior bladder wall = 4.1 mm. Bilateral Jets not seen There is no ascites. Cortical medullary differentiation is maintained. IMPRESSION: Exam is limited. Question bladder wall thickening, correlate for cystitis or chronic outlet obstructi on.
== END | disposition home or self-care (01) ==
LOC: RADUSWWP 15:30
PROVIDERS: ATTEND Urology
DX: N39.0 Urinary tract infection, site not specified (principal)
CPT/HCPCS: 76770

== ENCOUNTER 2018-03-22 14:53 | Emergency (ER) | payer OTHER ==
[2018-03-22 16:47] LABS: Basophils % (A) 0 %; Eosinophils # (A) 0.4 k/uL (0-0.7); Eosinophils % (A) 3 %; HGB 14.5 gm/dL (13.0-17.5); Lymphocytes # (A) 1.2 k/uL (1.0-4.8); Lymphocytes % (A) 10 %; MCH 30.4 pg (25.0-35.0); MCV 92.2 fL (80.0-100.0); Mean Platelet Volume 6.5; Monocytes # (A) 0.4 k/uL (0-1.0); Monocytes % (A) 3 %; Neutrophils # (A) 10.1 k/uL (1.3-7.7); Neutrophils % (A) 83 %; RBC 4.78 m/uL (4.30-5.90); WBC 12.3 k/uL (3.8-10.6)
[2018-03-22] MEDS ORDERED: MORPHINE SULFATE 4 MG/ML SYRINGE IM STA (16:49)
[2018-03-22 16:51] LABS: Platelet Count 186 k/uL (150-450)
[2018-03-22 17:05] LABS: ALT 41 U/L (21-72); AST 24 U/L (17-59); Albumin 3.9 g/dL (3.5-5.0); Alkaline Phosphatase 51 U/L (38-126); Anion Gap 10 mmol/L; Blood Urea Nitrogen 18 mg/dL (9-20); Calcium 9.4 mg/dL (8.4-10.2); Carbon Dioxide 23 mmol/L (22-30); Chloride 108 mmol/L (98-107); Glucose 198 mg/dL (74-99); Potassium 4.8 mmol/L (3.5-5.1); Sodium 141 mmol/L (137-145); Total Bilirubin 0.3 mg/dL (0.2-1.3); Total Protein 6.9 g/dL (6.3-8.2)
[2018-03-22] MEDS ORDERED: SODIUM CHLORIDE 0.9% 1,000 ML IV STA (17:28)
[2018-03-22 17:58] LABS: Appearance,Urine Cloudy (Clear); Bilirubin,Urine Negative (Negative); Blood,Urine Large (Negative); Color,Urine Light Yellow; Glucose,Urine (UA) Trace (Negative); Ketones,Urine Negative (Negative); Leukocyte Esterase,Urine Large (Negative); Mucus,Urine Rare /hpf; Nitrite,Urine Negative (Negative); PH, Urine 5.5 (5.0-8.0); Protein,Urine Negative (Negative); RBC,Urine 136 /hpf (0-5); Specific Gravity,Urine 1.025 (1.001-1.035); Squamous Epithelial Cell,Urine 1 /hpf (0-4); Urobilinogen,Urine <2.0 mg/dL (<2.0)
--- NOTE | 2018-03-22 18:10 | CT ---
EXAMINATION TYPE: CT abdomen pelvis w con DATE OF EXAM: 03/22/2018 COMPARISON: None HISTORY: Back pain to LLQ pain. CT DLP: 3027.4 mGycm Automated exposure control for dose reduction was used. TECHNIQUE: Helical acquisition of images was performed from the lung bases through the pelvis. CONTRAST: Performed without Oral Contrast and with IV Contrast, patient injected with 100 mL of Isovue 300. FINDINGS: Lung bases are clear of infiltrate. There is no pleural effusion. Heart size is normal. There is no p ericardial effusion. Liver spleen pancreas gallbladder appear normal. Bile ducts are not dilated. There is no adrenal mass . Kidneys show satisfactory contrast opacification. There is no hydronephrosis. Is some fullness of t he left ureter. There is minimal fat stranding around the left kidney. There is 3 mm calculus at the left ureterovesical junction. There is mild left-sided periureteral edema. There is no retroperitoneal adenopathy. Bladder distends smoothly. There is prostatic calcification. There is no inguinal hernia. There are multiple diverticula in the sigmoid colon. There is no evidenc e of diverticulitis. There is umbilical hernia that contains fat. There is no free fluid in the pelvi s. Appendix is not seen. There is no sign of appendicitis. There is no mesenteric edema or adenopathy . The lumbar spine is intact. I see no bony destructive process. IMPRESSION: TINY OBSTRUCTING CALCULUS AT THE LEFT URETEROVESICAL JUNCTION. MILD LEFT SIDE OBSTRUCTION AND PERINEP HRIC EDEMA.
[2018-03-22] MEDS ORDERED: MORPHINE SULFATE 4 MG/ML SYRINGE IV STA (18:55)
--- NOTE | 2018-03-22 18:59 | ED ---
General Adult HPI - General Chief complaint: Back Pain/Injury Stated complaint: Back pain Source: patient, RN notes reviewed, old records reviewed Mode of arrival: ambulatory Limitations: no limitations - History of Present Illness Initial comments: 53-year-old male patient past medical history of renal calculi, urinary tract infection presents to ED with L paralumbar pain that radiates to L flank that started this morning. Patient states that the pain is waxing and waning. Patient denies any other symptoms. Patient denies chest pain, shortness breath , abdominal pain, nausea vomiting diarrhea, fever or chills. Patient scheduled to have urology surgery approximately 2 weeks, takes prophylactic antibiotics. Systemic: Pt denies fatigue, myalgia, fever/chills, rash. Pt denies weakness, night sweats, weight loss. Neuro: Pt denies headache, visual disturbances, syncope or pre-syncope. HEENT: Pt denies ocular discharge or irritation, otalgia, rhinorrhea, pharyngitis or notable lymphadenopathy. Cardiopulmonary: Pt denies chest pain, SOB, heart palpitations, dyspnea on exertion. Abdominal/GI: Pt denies abdominal pain, n/v/d. : Pt denies dysuria, burning w/ urination, frequency/urgency. Denies new onset urinary or bowel incontinence. MSK: Pt denies myalgia, loss of strength or function in extremities. Neuro: Pt denies new onset weakness, paresthesias. - Related Data Home Medications Medication Instructions Recorded Confirmed Atorvastatin [Lipitor] 10 mg PO DAILY 08/11/15 02/10/18 metFORMIN HCL [Glucophage] 1,000 mg PO QAM 08/11/15 02/10/18 Losartan Potassium 100 mg PO DAILY 07/02/17 02/10/18 Pioglitazone [Actos] 30 mg PO DAILY 07/02/17 02/10/18 Aspirin EC [Ecotrin Low Dose] 81 mg PO DAILY 10/08/17 02/10/18 glipiZIDE [Glucotrol] 10 mg PO DAILY 02/10/18 02/10/18 metFORMIN HCL [Glucophage] 1,500 mg PO HS 02/10/18 02/10/18 Previous Rx's Medication Instructions Recorded Ciprofloxacin HCl [Cipro] 500 mg PO Q12HR #20 tablet 02/12/18 Ketorolac [Toradol] 10 mg PO Q8HR 5 Days #15 tab 03/22/18 Tamsulosin [Flomax] 0.4 mg PO DAILY 5 Days #5 cap 03/22/18 Allergies Allergy/AdvReac Type Severity Reaction Status Date / Time No Known Allergies Allergy Verified 03/22/18 14:57 Review of Systems ROS Statement: Those systems with pertinent positive or pertinent negative responses have been documented in the HPI. ROS Other: All systems not noted in ROS Statement are negative. Past Medical History Past Medical History: Diabetes Mellitus, Hyperlipidemia, Hypertension Additional Past Medical History / Comment(s): NIDDM type II, arthritis entire spine, UTIs, diverticulosis, skin tags History of Any Multi-Drug Resistant Organisms: None Reported Past Surgical History: Adenoidectomy, Appendectomy, Tonsillectomy Additional Past Surgical History / Comment(s): circumsions, colonoscopy with benign polypectomy Past Anesthesia/Blood Transfusion Reactions: No Reported Reaction Past Psychological History: No Psychological Hx Reported Smoking Status: Never smoker Past Alcohol Use History: None Reported Past Drug Use History: None Reported - Past Family History Mother Family Medical History: Cancer, Diabetes Mellitus Additional Family Medical History / Comment(s): ca: colon. Mother of diabetic complications in her 60s. Father Family Medical History: Myocardial Infarction ([place]), Renal Disease Additional Family Medical History / Comment(s): from [place] at the age of 44 yrs, "[place] was d/t an illness, that caused the heart attack", kidney disease General Exam - General Exam Comments Initial Comments: Constitutional: NAD, AOX3, Pt has pleasant affect. HEENT: NC/AT, trachea midline, neck supple, no lymphadenopathy. Posterior pharynx non erythematous, without exudates. External ears appear normal, without discharge. Mucous membranes moist. Eyes PERRLA, EOM intact. There is no scleral icterus. No pallor noted. Cardiopulmonary: RRR, no murmurs, rubs or gallops, no JVD noted. Lungs CTAB in anterior and posterior mckeon. No peripheral edema. Abdominal exam: Abdomen soft and non-distended. Abdomen non-tender to palpation in all 4 quadrants. Bowel sounds active in LLQ. No hepatosplenomegaly. No ecchymosis no flank tenderness. CVA tenderness negative. Neuro: CN II-XII grossly intact. No nuchal rigidity. MSK: No cervical, thoracic or lumbar spinal tenderness. No posterior calf tenderness bilaterally, homans sign negative bilaterally. Posterior tibialis and radial pulse +2 bilaterally. Sensation intact in upper and lower extremities. Full active ROM in upper and lower extremities, 5/5 stregnth. Limitations: no limitations Course Vital Signs 03/22/18 03/22/18 03/22/18 14:55 17:30 19:14 Temperature 97.4 F L 97.7 F Pulse Rate 79 91 84 Respiratory 20 16 18 Rate Blood Pressure 212/98 162/77 160/88 O2 Sat by Pulse 97 97 95 Oximetry Medical Decision Making - Medical Decision Making 53-year-old male patient past medical history of renal calculi, urinary tract infection presents to ED with L paralumbar pain that radiates to L flank that started this morning. Physical exam is likely acute pathology. Laboratory investigations revealed slight leukocytosis, CMP was non-impressive. UA revealed hematuria. CT abdomen and pelvis revealed a tiny obstructing calculus the left ureterovesicular junction. Mild left sided obstructing and perinephric edema. Patient diagnosed with renal calculi. Findings related patient, patient conveyed understanding. Patient treated with Toradol, Flomax. Pt to call personal urologist in morning, pt given referral if contact unable to be made. Patient to continue daily antibiotic. Pt to f/u with PCP in 1-2 days. Pt to return to ED if any new s/sx develop. Case discussed with Dr. Barcenas. - Lab Data Result diagrams: 03/22/18 16:38 03/22/18 16:38 Lab Results 03/22/18 03/22/18 03/22/18 Range/Units 16:38 16:38 17:42 WBC 12.3 H (3.8-10.6) k/uL RBC 4.78 (4.30-5.90) m/uL Hgb 14.5 (13.0-17.5) gm/dL Hct 44.0 (39.0-53.0) % MCV 92.2 (80.0-100.0) fL MCH 30.4 (25.0-35.0) pg MCHC 33.0 (31.0-37.0) g/dL RDW 14.0 (11.5-15.5) % Plt Count 186 D (150-450) k/uL Neutrophils % 83 % Lymphocytes % 10 % Monocytes % 3 % Eosinophils % 3 % Basophils % 0 % Neutrophils # 10.1 H (1.3-7.7) k/uL Lymphocytes # 1.2 (1.0-4.8) k/uL Monocytes # 0.4 (0-1.0) k/uL Eosinophils # 0.4 (0-0.7) k/uL Basophils # 0.0 (0-0.2) k/uL Sodium 141 (137-145) mmol/L Potassium 4.8 (3.5-5.1) mmol/L Chloride 108 H (98-107) mmol/L Carbon Dioxide 23 (22-30) mmol/L Anion Gap 10 mmol/L BUN 18 (9-20) mg/dL Creatinine 0.78 (0.66-1.25) mg/dL Est GFR (CKD-EPI)AfAm >90 (>60 ml/min/1.73 sqM) Est GFR (CKD-EPI)NonAf >90 (>60 ml/min/1.73 sqM) Glucose 198 H (74-99) mg/dL Calcium 9.4 (8.4-10.2) mg/dL Total Bilirubin 0.3 (0.2-1.3) mg/dL AST 24 (17-59) U/L ALT 41 (21-72) U/L Alkaline Phosphatase 51 (38-126) U/L Total Protein 6.9 (6.3-8.2) g/dL Albumin 3.9 (3.5-5.0) g/dL Urine Color Light Yellow Urine Appearance Cloudy (Clear) Urine pH 5.5 (5.0-8.0) Ur Specific [place] 1.025 (1.001-1.035) Urine Protein Negative (Negative) Urine Glucose (UA) Trace H (Negative) Urine Ketones Negative (Negative) Urine Blood Large H (Negative) Urine Nitrite Negative (Negative) Urine Bilirubin Negative (Negative) Urine Urobilinogen <2.0 (<2.0) mg/dL Ur Leukocyte Esterase Large H (Negative) Urine RBC 136 H (0-5) /hpf Urine WBC 45 H (0-5) /hpf Ur Squamous Epith Cells 1 (0-4) /hpf Urine Mucus Rare H (None) /hpf Disposition Clinical Impression: Renal calculi Disposition: HOME SELF-CARE Condition: Good Instructions: Kidney Stones (ED) Additional Instructions: Patient to adhere to previously discussed treatment plan and will take medication(s) as directed. Patient to follow up with PCP in 1-2 days. Patient to return to ED if symptoms do not improve. Prescriptions: Ketorolac [Toradol] 10 mg PO Q8HR 5 Days #15 tab Tamsulosin [Flomax] 0.4 mg PO DAILY 5 Days #5 cap Is patient prescribed a controlled substance at d/c from ED?: No Referrals: Devonte Juarez MD [Primary Care Provider] - 1-2 days Cristhian Krueger MD [STAFF PHYSICIAN] - 1-2 days
[2018-03-22 19:15] VITALS: BP 160/88; PULSE 84; RESP 18; TEMP 97.7
== END 2018-03-22 19:14 | disposition home or self-care (01) ==
LOC: EC 14:53
DX: N20.0 Calculus of kidney (principal); E11.9 Type 2 diabetes mellitus without complications; E78.5 Hyperlipidemia, unspecified; I10 Essential (primary) hypertension; Z79.84 Long term (current) use of oral hypoglycemic drugs; Z79.82 Long term (current) use of aspirin; Z79.899 Other long term (current) drug therapy
CPT/HCPCS: 99284; 96374; 96361; 96372; 36415; 80053; 85025; 81001; 87086; 87077; 87186; 74177; J2270; Q9967

== ENCOUNTER 2018-08-11 18:23 | Emergency (ER) | payer BC, OTHER ==
[2018-08-11 18:27] VITALS: TEMP 98.2
--- NOTE | 2018-08-11 18:40 | ED ---
Male Urogenital HPI - General Chief complaint: Urogenital Stated complaint: MALE Time Seen by Provider: 08/11/18 18:28 Source: patient Mode of arrival: ambulatory Limitations: no limitations - History of Present Illness Initial comments: 53-year-old male presenting today for chief complaint of scrotal swelling. Patient states in April 2018 he had penile reconstructive surgery. 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 Pt states he has had one UTI s/p surgery, he had a f/u appointment with Dr. Meier his urologist in [facility] 3 weeks ago. He states he is to keep the area moist and applies a cream daily to the area. Pt next appointment is in December. She states today he had scrotal swelling he noticed it when he looked down while urinating. Patient denies any pain, he states they simply feel swollen. Patient was concerned he had another infection and presents emergency department for evaluation. Pt denies abdominal pain, fever, chills or night sweat, he denies dysuria urgency or frequency. Remaining ROS (-). upon arrival pt appears well, mo evidence of discomfort - Related Data Home Medications Medication Instructions Recorded Confirmed Atorvastatin [Lipitor] 10 mg PO DAILY 08/11/15 08/11/18 Losartan Potassium 100 mg PO DAILY 07/02/17 08/11/18 Pioglitazone [Actos] 30 mg PO DAILY 07/02/17 08/11/18 Aspirin EC [Ecotrin Low Dose] 81 mg PO DAILY 10/08/17 08/11/18 glipiZIDE [Glucotrol] 10 mg PO BID 08/11/18 08/11/18 metFORMIN HCL [Glucophage] 1,000 mg PO BID 08/11/18 08/11/18 Previous Rx's Medication Instructions Recorded Sulfamethox-Tmp 800-160Mg [Bactrim 1 tab PO Q12HR 7 Days #14 tab 08/11/18 DS 800-160 mg] Allergies Allergy/AdvReac Type Severity Reaction Status Date / Time No Known Allergies Allergy Verified 08/11/18 18:42 Review of Systems ROS Statement: Those systems with pertinent positive or pertinent negative responses have been documented in the HPI. ROS Other: All systems not noted in ROS Statement are negative. Past Medical History Past Medical History: Diabetes Mellitus, Hyperlipidemia, Hypertension Additional Past Medical History / Comment(s): NIDDM type II, arthritis entire spine, UTIs, diverticulosis, skin tags History of Any Multi-Drug Resistant Organisms: None Reported Past Surgical History: Adenoidectomy, Appendectomy, Tonsillectomy Additional Past Surgical History / Comment(s): circumsions, colonoscopy with benign polypectomy Past Anesthesia/Blood Transfusion Reactions: No Reported Reaction Past Psychological History: No Psychological Hx Reported Smoking Status: Never smoker Past Alcohol Use History: None Reported Past Drug Use History: None Reported - Past Family History Mother Family Medical History: Cancer, Diabetes Mellitus Additional Family Medical History / Comment(s): ca: colon. Mother of diabetic complications in her 60s. Father Family Medical History: Myocardial Infarction ([place]), Renal Disease Additional Family Medical History / Comment(s): from [place] at the age of 44 yrs, "[place] was d/t an illness, that caused the heart attack", kidney disease General Exam - General Exam Comments Initial Comments: General: The patient is awake and alert, in no distress, and does not appear acutely ill. Eye: Pupils are equal, round and reactive to light, extra-ocular movements are intact. No nystagmus. There is normal conjunctiva bilaterally. No signs of icterus. Ears, nose, mouth and throat: There are moist mucous membranes and no oral lesions. Neck: The neck is supple, there is no tenderness or JVD. Cardiovascular: There is a regular rate and rhythm. No murmur, rub or gallop is appreciated. Respiratory: Lungs are clear to auscultation, respirations are non-labored, breath sounds are equal. No wheezes, stridor, rales, or rhonchi. Gastrointestinal: Soft, non-distended, non-tender abdomen without masses or organomegaly noted. There is no rebound or guarding present. No CVA tenderness. Bowel sounds are unremarkable. No erythema or swelling of the penis. Enlarged scrotum b/l, mildly erythematous, pt denies any pain to palpation of scrotum. No palpable masses. No erythema of the perineal region or thighs. Musculoskeletal: Normal ROM, no tenderness. Strength 5/5. Sensation intact. Pulses equal bilaterally 2+. Neurological: A&O x 3. CN II-XII intact, There are no obvious motor or sensory deficits. Coordination appears grossly intact. Speech is normal. Skin: Skin is warm and dry and no rashes or lesions are noted. Psychiatric: Cooperative, appropriate mood & affect, normal judgment. Limitations: no limitations Course Vital Signs 08/11/18 08/11/18 18:24 20:16 Temperature 98.2 F Pulse Rate 100 82 Respiratory 20 18 Rate Blood Pressure 158/95 137/88 O2 Sat by Pulse 98 98 Oximetry Medical Decision Making - Medical Decision Making 53 yo male presenting for cc of scrotal swelling there is mild erythema of scrotum no pain to palpation,, there is no involvement of the perineal region. Pt shows no signs of fourniers gangrene on physical exam. pt labs reveal no leukocytosis. pt UA reveals findings consistent with a urinary tract infection, patient states he recently completed a course of keflex will change treatment to bactrim. No hydrocele or varicocele on US, no torsion. Pt denies constitutional symptoms. I discussed case and reviewed labs and imaging study with attending Dr. Stevens he personally reviewed ultrasound. At this time we feel patient is stable for discharge with antibiotic orally outpatiet and close follow-up with patients established urologist. Instressed the importance of strict return parameters for pain, increasing redness or swelling as well as the development of fever or worsening/concerning signs or symptoms. patient and patient verbalized understanding. patient is agreeable with care plan as well as discharge. - Lab Data Result diagrams: 08/11/18 19:05 08/11/18 19:05 Lab Results 08/11/18 08/11/18 08/11/18 Range/Units 19:05 19:05 19:05 WBC 9.9 (3.8-10.6) k/uL RBC 4.53 (4.30-5.90) m/uL Hgb 13.9 (13.0-17.5) gm/dL Hct 41.2 (39.0-53.0) % MCV 90.9 (80.0-100.0) fL MCH 30.7 (25.0-35.0) pg MCHC 33.7 (31.0-37.0) g/dL RDW 14.6 (11.5-15.5) % Plt Count 190 (150-450) k/uL Neutrophils % 71 % Lymphocytes % 18 % Monocytes % 6 % Eosinophils % 3 % Basophils % 0 % Neutrophils # 7.1 (1.3-7.7) k/uL Lymphocytes # 1.8 (1.0-4.8) k/uL Monocytes # 0.6 (0-1.0) k/uL Eosinophils # 0.3 (0-0.7) k/uL Basophils # 0.0 (0-0.2) k/uL Sodium 137 (137-145) mmol/L Potassium 4.0 (3.5-5.1) mmol/L Chloride 104 (98-107) mmol/L Carbon Dioxide 26 (22-30) mmol/L Anion Gap 7 mmol/L BUN 14 (9-20) mg/dL Creatinine 0.64 L (0.66-1.25) mg/dL Est GFR (CKD-EPI)AfAm >90 (>60 ml/min/1.73 sqM) Est GFR (CKD-EPI)NonAf >90 (>60 ml/min/1.73 sqM) Glucose 197 H (74-99) mg/dL Calcium 9.4 (8.4-10.2) mg/dL Total Bilirubin 0.6 (0.2-1.3) mg/dL AST 20 (17-59) U/L ALT 40 (21-72) U/L Alkaline Phosphatase 67 (38-126) U/L Total Protein 6.8 (6.3-8.2) g/dL Albumin 3.9 (3.5-5.0) g/dL Urine Color Yellow Urine Appearance Clear (Clear) Urine pH 5.5 (5.0-8.0) Ur Specific [place] 1.033 (1.001-1.035) Urine Protein Trace H (Negative) Urine Glucose (UA) 4+ H (Negative) Urine Ketones Negative (Negative) Urine Blood Negative (Negative) Urine Nitrite Negative (Negative) Urine Bilirubin Negative (Negative) Urine Urobilinogen 2.0 (<2.0) mg/dL Ur Leukocyte Esterase Large H (Negative) Urine RBC 7 H (0-5) /hpf Urine WBC 33 H (0-5) /hpf Ur Squamous Epith Cells 1 (0-4) /hpf Urine Bacteria Rare H (None) /hpf Urine Mucus Rare H (None) /hpf Disposition Clinical Impression: Scrotal swelling, UTI (urinary tract infection) Disposition: HOME SELF-CARE Condition: Good Instructions (If sedation given, give patient instructions): Urinary Tract Infection in Men (ED) Additional Instructions: Please use medication as discussed. Please follow-up with your urologist in the next 1-2 days. Please return to emergency room if the symptoms increase or worsen or for any other concerns. Prescriptions: Sulfamethox-Tmp 800-160Mg [Bactrim DS 800-160 mg] 1 tab PO Q12HR 7 Days #14 tab Is patient prescribed a controlled substance at d/c from ED?: No Referrals: Devonte Juarez MD [Primary Care Provider] - 1-2 days Time of Disposition: 20:38
[2018-08-11 19:19] LABS: Basophils % (A) 0 %; Eosinophils # (A) 0.3 k/uL (0-0.7); Eosinophils % (A) 3 %; HCT 41.2 % (39.0-53.0); HGB 13.9 gm/dL (13.0-17.5); Lymphocytes # (A) 1.8 k/uL (1.0-4.8); Lymphocytes % (A) 18 %; MCH 30.7 pg (25.0-35.0); MCHC 33.7 g/dL (31.0-37.0); MCV 90.9 fL (80.0-100.0); Monocytes # (A) 0.6 k/uL (0-1.0); Monocytes % (A) 6 %; Neutrophils # (A) 7.1 k/uL (1.3-7.7); Neutrophils % (A) 71 %; Platelet Count 190 k/uL (150-450); RBC 4.53 m/uL (4.30-5.90); RDW 14.6 % (11.5-15.5); WBC 9.9 k/uL (3.8-10.6)
[2018-08-11 19:26] LABS: Appearance,Urine Clear (Clear); Bacteria,Urine Rare /hpf; Bilirubin,Urine Negative (Negative); Blood,Urine Negative (Negative); Color,Urine Yellow; Glucose,Urine (UA) 4+ (Negative); Ketones,Urine Negative (Negative); Leukocyte Esterase,Urine Large (Negative); Mucus,Urine Rare /hpf; Nitrite,Urine Negative (Negative); PH, Urine 5.5 (5.0-8.0); Protein,Urine Trace (Negative); RBC,Urine 7 /hpf (0-5); Specific Gravity,Urine 1.033 (1.001-1.035); Squamous Epithelial Cell,Urine 1 /hpf (0-4); WBC,Urine 33 /hpf (0-5)
[2018-08-11 19:27] LABS: ALT 40 U/L (21-72); AST 20 U/L (17-59); Albumin 3.9 g/dL (3.5-5.0); Alkaline Phosphatase 67 U/L (38-126); Anion Gap 7 mmol/L; Blood Urea Nitrogen 14 mg/dL (9-20); Calcium 9.4 mg/dL (8.4-10.2); Carbon Dioxide 26 mmol/L (22-30); Chloride 104 mmol/L (98-107); Glucose 197 mg/dL (74-99); Sodium 137 mmol/L (137-145); Total Bilirubin 0.6 mg/dL (0.2-1.3); Total Protein 6.8 g/dL (6.3-8.2)
[2018-08-11] MEDS ORDERED: cefTRIAXone IN SWFI 1,000 MG/10 ML SYRINGE IVP STA (19:53)
[2018-08-11 20:18] VITALS: BP 137/88; PULSE 82; RESP 18
--- NOTE | 2018-08-11 20:35 | US ---
EXAMINATION TYPE: US scrotum with doppler. Grayscale and color Doppler Duplex imaging performed of lali simmons scrotum. DATE OF EXAM: 08/11/2018 COMPARISON: 07/02/2017 CLINICAL HISTORY: Pain. Swelling. EXAM MEASUREMENTS: TESTICLES: Right Testicle: 4.7 x 2.3 x 3.1 cm Left Testicle: 4.7 x 2.2 x 3.5 cm EPIDIDYMIS HEAD: Right Epididymis: 1.3 cm Cystic area seen .7cm. Left Epididymis: 1.2 cm Doppler performed to assess for testicular vascularity; good bilateral color flow and waveforms are s een. There is no evidence of testicular torsion. Presence of hydroceles: No Presence of varicoceles: No IMPRESSION: Small right epididymal cyst. No testicular torsion or mass.
== END 2018-08-11 20:58 | disposition home or self-care (01) ==
LOC: EC 18:23
DX: N39.0 Urinary tract infection, site not specified (principal); N50.89 Other specified disorders of the male genital organs; E11.9 Type 2 diabetes mellitus without complications; E78.5 Hyperlipidemia, unspecified; I10 Essential (primary) hypertension; Z79.82 Long term (current) use of aspirin; Z79.84 Long term (current) use of oral hypoglycemic drugs; Z79.899 Other long term (current) drug therapy
CPT/HCPCS: 36415; 80053; 85025; 81001; 87086; 93975; 76870; 99284; 96374; J0696

== ENCOUNTER 2018-08-11 23:00 | Emergency (ER) | payer BC ==
[2018-08-11 23:08] VITALS: RESP 18; TEMP 98.4
[2018-08-12] MEDS: SODIUM CHLORIDE 0.9% 500 ML 500 ML IV SCH ×2 (00:38→01:10)
[2018-08-12 00:52] LABS: Basophils % (A) 0 %; Eosinophils # (A) 0.3 k/uL (0-0.7); Eosinophils % (A) 3 %; HCT 43.2 % (39.0-53.0); HGB 14.3 gm/dL (13.0-17.5); Lymphocytes # (A) 1.5 k/uL (1.0-4.8); Lymphocytes % (A) 14 %; MCHC 33.1 g/dL (31.0-37.0); MCV 90.7 fL (80.0-100.0); Monocytes # (A) 0.6 k/uL (0-1.0); Monocytes % (A) 6 %; Neutrophils # (A) 7.8 k/uL (1.3-7.7); Neutrophils % (A) 75 %; Platelet Count 192 k/uL (150-450); RBC 4.76 m/uL (4.30-5.90); RDW 14.3 % (11.5-15.5); WBC 10.5 k/uL (3.8-10.6)
[2018-08-12 01:01] LABS: ALT 42 U/L (21-72); AST 22 U/L (17-59); Albumin 4.1 g/dL (3.5-5.0); Alkaline Phosphatase 71 U/L (38-126); Anion Gap 8 mmol/L; Blood Urea Nitrogen 16 mg/dL (9-20); Calcium 9.5 mg/dL (8.4-10.2); Carbon Dioxide 26 mmol/L (22-30); Chloride 103 mmol/L (98-107); Glucose 204 mg/dL (74-99); Potassium 4.3 mmol/L (3.5-5.1); Sodium 137 mmol/L (137-145); Total Bilirubin 0.5 mg/dL (0.2-1.3); Total Protein 7.1 g/dL (6.3-8.2)
[2018-08-12 01:08] LABS: INR 0.9 (<1.2); Partial Thromboplastin Time 22.2 sec (22.0-30.0); Prothrombin Time 10.1 sec (9.0-12.0)
--- NOTE | 2018-08-12 02:37 | ED ---
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 Surgery was in April of this year with Dr. Solomon at [facility]. Patient reports that since that time he has had recurrent urinary tract infections, patient reports that yesterday he noted some erythema and swelling of his testicles with no pain. He was seen and evaluated in the emergency department again noted to have a urinary tract infection. He was hemodynamically stable no leukocytosis and decision was made to discharge him home on oral antibiotics. However given the patient has diabetes obesity and previous surgical history there is concerned he may be high risk for developing worsening cellulitis of the scrotum or Jabier's gangrene he was asked to return to the ER for reevaluation. Reevaluation the patient is comfortable with no pain in his testicles change in the swelling. The patient reports he otherwise feels well and feels that he will be able to follow up with his surgeon tomorrow, he states that in the past when he is contacted the surgeon with concerns he has been able to be seen same day. - Related Data Home Medications Medication Instructions Recorded Confirmed Atorvastatin [Lipitor] 10 mg PO DAILY 08/11/15 08/11/18 Losartan Potassium 100 mg PO DAILY 07/02/17 08/11/18 Pioglitazone [Actos] 30 mg PO DAILY 07/02/17 08/11/18 Aspirin EC [Ecotrin Low Dose] 81 mg PO DAILY 10/08/17 08/11/18 glipiZIDE [Glucotrol] 10 mg PO BID 08/11/18 08/11/18 metFORMIN HCL [Glucophage] 1,000 mg PO BID 08/11/18 08/11/18 Previous Rx's Medication Instructions Recorded Sulfamethox-Tmp 800-160Mg [Bactrim 1 tab PO Q12HR 7 Days #14 tab 08/11/18 DS 800-160 mg] Allergies Allergy/AdvReac Type Severity Reaction Status Date / Time No Known Allergies Allergy Verified 08/11/18 23:10 Review of Systems ROS Statement: Those systems with pertinent positive or pertinent negative responses have been documented in the HPI. ROS Other: All systems not noted in ROS Statement are negative. Past Medical History Past Medical History: Diabetes Mellitus, Hyperlipidemia, Hypertension Additional Past Medical History / Comment(s): NIDDM type II, arthritis entire spine, UTIs, diverticulosis, skin tags History of Any Multi-Drug Resistant Organisms: C-DIFF Date of last positivie culture/infection: 2017 MDRO Source:: stool Past Surgical History: Adenoidectomy, Appendectomy, Tonsillectomy Additional Past Surgical History / Comment(s): circumsions, colonoscopy with benign polypectomy Past Anesthesia/Blood Transfusion Reactions: No Reported Reaction Past Psychological History: No Psychological Hx Reported Smoking Status: Former smoker Past Alcohol Use History: None Reported Past Drug Use History: None Reported - Past Family History Mother Family Medical History: Cancer, Diabetes Mellitus Additional Family Medical History / Comment(s): ca: colon. Mother of diabetic complications in her 60s. Father Family Medical History: Myocardial Infarction ([place]), Renal Disease Additional Family Medical History / Comment(s): from [place] at the age of 44 yrs, "[place] was d/t an illness, that caused the heart attack", kidney disease General Exam - General Exam Comments Initial Comments: Physical Exam GENERAL: Patient is well-developed and well-nourished. Patient is nontoxic and well-hydrated and is in no distress. HENT: Normocephalic, Atraumatic. EYES: PERRL, EOMI PULMONARY: Unlabored respirations. No audible rales rhonchi or wheezing was noted. CARDIOVASCULAR: There is a regular rate and rhythm without any murmurs gallops or rubs. ABDOMEN: Obese. Soft and nontender with normal bowel sounds. SKIN: Skin is clear with no lesions or rashes and otherwise unremarkable. : Circumsized penis, darkened scarred skin of the penis consistent with history of reconstructive surgery - normal per patient Enlarged testicles, no tenderness to palpation, No blistering, necrosis or signs of acute skin infection NEUROLOGIC: Patient is alert and oriented x3. Moving all extremities spontaneously MUSCULOSKELETAL: Normal extremities with adequate strength and full range of motion. No lower extremity swelling or edema. No calf tenderness. PSYCHIATRIC: Normal psychiatric evaluation. Limitations: no limitations Course Vital Signs 08/11/18 08/12/18 23:05 02:54 Temperature 98.4 F Pulse Rate 95 88 Respiratory 18 18 Rate Blood Pressure 159/92 149/83 O2 Sat by Pulse 98 100 Oximetry Medical Decision Making - Medical Decision Making The patient was seen and evaluated, history is obtained from the patient and rev iew of medical record This is a reevaluation of the patient for UTI and possible scrotal infection Physical exam does reveal penis with surgical changes and an erythematous but nontender scrotum A sepsis workup was obtained is leukocytosis is improving, there is no significant change in labs glucose is 204 Lactic acidosis is not elevated Patient care was discussed with urology office Dr. Mcclelland it's that the patient can be evaluated in their office later today therefore can be discharged from the emergency department. - Lab Data Result diagrams: 08/12/18 00:36 08/12/18 00:36 Lab Results 08/12/18 08/12/18 08/12/18 Range/Units 00:36 00:36 00:36 WBC 10.5 (3.8-10.6) k/uL RBC 4.76 (4.30-5.90) m/uL Hgb 14.3 (13.0-17.5) gm/dL Hct 43.2 (39.0-53.0) % MCV 90.7 (80.0-100.0) fL MCH 30.0 (25.0-35.0) pg MCHC 33.1 (31.0-37.0) g/dL RDW 14.3 (11.5-15.5) % Plt Count 192 (150-450) k/uL Neutrophils % 75 % Lymphocytes % 14 % Monocytes % 6 % Eosinophils % 3 % Basophils % 0 % Neutrophils # 7.8 H (1.3-7.7) k/uL Lymphocytes # 1.5 (1.0-4.8) k/uL Monocytes # 0.6 (0-1.0) k/uL Eosinophils # 0.3 (0-0.7) k/uL Basophils # 0.0 (0-0.2) k/uL PT (9.0-12.0) sec INR (<1.2) APTT (22.0-30.0) sec Sodium 137 (137-145) mmol/L Potassium 4.3 (3.5-5.1) mmol/L Chloride 103 (98-107) mmol/L Carbon Dioxide 26 (22-30) mmol/L Anion Gap 8 mmol/L BUN 16 (9-20) mg/dL Creatinine 0.62 L (0.66-1.25) mg/dL Est GFR (CKD-EPI)AfAm >90 (>60 ml/min/1.73 sqM) Est GFR (CKD-EPI)NonAf >90 (>60 ml/min/1.73 sqM) Glucose 204 H (74-99) mg/dL Plasma Lactic Acid Bala 1.1 (0.7-2.0) mmol/L Calcium 9.5 (8.4-10.2) mg/dL Total Bilirubin 0.5 (0.2-1.3) mg/dL AST 22 (17-59) U/L ALT 42 (21-72) U/L Alkaline Phosphatase 71 (38-126) U/L Total Protein 7.1 (6.3-8.2) g/dL Albumin 4.1 (3.5-5.0) g/dL 08/12/18 Range/Units 00:36 WBC (3.8-10.6) k/uL RBC (4.30-5.90) m/uL Hgb (13.0-17.5) gm/dL Hct (39.0-53.0) % MCV (80.0-100.0) fL MCH (25.0-35.0) pg MCHC (31.0-37.0) g/dL RDW (11.5-15.5) % Plt Count (150-450) k/uL Neutrophils % % Lymphocytes % % Monocytes % % Eosinophils % % Basophils % % Neutrophils # (1.3-7.7) k/uL Lymphocytes # (1.0-4.8) k/uL Monocytes # (0-1.0) k/uL Eosinophils # (0-0.7) k/uL Basophils # (0-0.2) k/uL PT 10.1 (9.0-12.0) sec INR 0.9 (<1.2) APTT 22.2 (22.0-30.0) sec Sodium (137-145) mmol/L Potassium (3.5-5.1) mmol/L Chloride (98-107) mmol/L Carbon Dioxide (22-30) mmol/L Anion Gap mmol/L BUN (9-20) mg/dL Creatinine (0.66-1.25) mg/dL Est GFR (CKD-EPI)AfAm (>60 ml/min/1.73 sqM) Est GFR (CKD-EPI)NonAf (>60 ml/min/1.73 sqM) Glucose (74-99) mg/dL Plasma Lactic Acid Bala (0.7-2.0) mmol/L Calcium (8.4-10.2) mg/dL Total Bilirubin (0.2-1.3) mg/dL AST (17-59) U/L ALT (21-72) U/L Alkaline Phosphatase (38-126) U/L Total Protein (6.3-8.2) g/dL Albumin (3.5-5.0) g/dL Disposition Clinical Impression: Urinary tract infection Disposition: HOME SELF-CARE Condition: Stable Instructions (If sedation given, give patient instructions): Urinary Tract Infection in Men (ED) Additional Instructions: Follow-up with Dr. Solomon later today or tomorrow. If he develop any worsening swelling in her testicles pain, fever or any new or concerning symptoms return to the emergency department immediately. Due to the history of diabetes and dunaway rgical intervention on her genitals in the past 2 or very high risk for developing an infection which could rapidly worsen so please do not hesitate to return for reevaluation of anything changes. Is patient prescribed a controlled substance at d/c from ED?: No Referrals: Devonte Juarez MD [Primary Care Provider] - 1-2 days
[2018-08-12 02:56] VITALS: BP 149/83; PULSE 88
== END 2018-08-12 02:56 | disposition home or self-care (01) ==
LOC: EC 23:00
DX: N39.0 Urinary tract infection, site not specified (principal); N50.89 Other specified disorders of the male genital organs; R00.0 Tachycardia, unspecified; E11.9 Type 2 diabetes mellitus without complications; E78.5 Hyperlipidemia, unspecified; I10 Essential (primary) hypertension; Z87.891 Personal history of nicotine dependence; Z79.82 Long term (current) use of aspirin; Z79.84 Long term (current) use of oral hypoglycemic drugs; Z79.899 Other long term (current) drug therapy; Z98.890 Other specified postprocedural states
CPT/HCPCS: 36415; 80053; 83605; 85025; 85610; 85730; 87040; 93005; 96360; 96361; 99283

== ENCOUNTER → 2020-02-04 | Outpatient (CLI) | payer BC ==
--- NOTE | 2020-02-04 18:20 | CONS ---
CONSULTATION DATE OF SERVICE: 02/04/2020 This patient is a 54-year-old gentleman who has been evaluated in the sleep center for possible obstructive sleep apnea-hypopnea syndrome. HISTORY OF PRESENT ILLNESS/SLEEP-WAKE EVALUATION: Patient's usual sleep schedule is from 8 p.m. to 3 a.m. on weekdays and from 7:30 p.m. 3:45 on weekends, according to his questionnaire. The patient not often has episodes of difficulties falling asleep. Otherwise, he sleeps well. No TV in bedroom. He usually sleeps in different positions. According to his , he has loud snoring and witnessed episodes of stopped breathing during sleep. The patient has a significant amount of movements with his legs at night in the beginning of the night, restless legs and kicking movements during the night. He wakes up from sleep 8 times, once with nocturia. In the morning the patient wakes up tired, has difficulties paying attention, falling asleep during the day. He has problems with memory, concentration, irritability, sexual dysfunction. PAST MEDICAL HISTORY: Positive for hypertension, diabetes mellitus. PAST SURGICAL HISTORY: Right knee surgery, tonsillectomy, appendectomy, penile reconstruction surgery. MEDICATIONS: 1. Aspirin 81 mg once a day. 2. Atorvastatin 10 mg once a day. 3. Cyclobenzaprine 10 mg. 4. Glipizide 5 mg once daily. 5. Losartan 100 mg once daily. 6. Metformin 500 mg two tablets twice daily. 7. Pioglitazone 30 mg once daily. 8. Sildenafil 100 mg up to once a day for erections. SOCIAL HISTORY: Quit smoking 20 years ago. Alcohol consumption rarely. FAMILY HISTORY: Stroke, arthritis, diabetes. REVIEW OF SYSTEMS: Multiple awakenings from sleep, sleepiness during the day. [place] Sleepiness Scale significantly increased to 15. PHYSICAL EXAMINATION: GENERAL: A pleasant gentleman without distress. VITAL SIGNS: BP 151/97, HR 82, RR 15, height 5 feet 11 inches, weight 362, BMI 50.4, temperature 97.9, oxygen saturation at room air 96%. HEENT: PERRLA, EOMI. Evaluation of oropharynx showed tongue protrudes midline. Extremely low position of soft palate. Mallampati IV. NECK: Supple. No JVD. Thyroid is not palpable. Neck is wide; 22 inches in circumference. LUNGS: Clear to percussion and to auscultation. Good air exchange. No wheezing or rhonchi. HEART: S1, S2 regular. No murmurs, gallops or rubs. ABDOMEN: Obese. EXTREMITIES: No clubbing or cyanosis. 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 Cranial nerves 2 to 7 intact. There is no fasciculation or atrophy. noted. No focal deficits observed. IMPRESSION: 1. Loud snoring, witnessed episodes of stopped breathing during sleep, extremely low position of soft palate, Mallampati IV, extremely wide neck, sleepiness, [place] Sleepiness Scale 15; obstructive sleep apnea-hypopnea syndrome. 2. Obesity. BMI 50.4. 3. Significant amount of movements during the night; periodic limb movements. 4. Restless leg symptoms. 5. Hypertension. 6. Diabetes mellitus. 7. Sinus problems. 8. Status post right knee surgery. 9. Status post tonsillectomy. 10.Status post penile reconstruction surgery. 11.Status post appendectomy. PLAN: 1. Polysomnography for evaluation of patient's breathing during sleep and also to check and document possibly very significant amount of periodic limb movements. 2. CPAP/BiPAP titration if sleep study confirms obstructive sleep apnea-hypopnea syndrome. 3. Preferable position during sleep on the side. 4. No driving if patient feels any sleepiness. 5. I will see patient for follow up visit to explain results of testing and following plan. Thank you very much for referring this patient for consultation. Sincerely, Lavell Simon MD, PhD, FAASM Diplomat of [place] [employer] [place] [employer] [facility] [place] MMODL / FRANCISCAN: [id number] /
== END | disposition home or self-care (01) ==
LOC: SLEEP 15:37
PROVIDERS: ATTEND Internal Medicine
DX: G47.33 Obstructive sleep apnea (adult) (pediatric) (principal); E66.9 Obesity, unspecified; I10 Essential (primary) hypertension; E11.9 Type 2 diabetes mellitus without complications; G25.81 Restless legs syndrome; J34.9 Unspecified disorder of nose and nasal sinuses; Z90.49 Acquired absence of other specified parts of digestive tract; Z98.890 Other specified postprocedural states; Z68.43 Body mass index [BMI] 50.0-59.9, adult; Z79.891 Long term (current) use of opiate analgesic; Z79.899 Other long term (current) drug therapy; Z79.82 Long term (current) use of aspirin; Z79.84 Long term (current) use of oral hypoglycemic drugs
CPT/HCPCS: 99211

== ENCOUNTER 2021-06-09 16:02 | Emergency (ER) | payer BC ==
[2021-06-09] MEDS ORDERED: HYDROmorphone 1 MG/ML 1 ML SYRINGE IM STA (17:49)
--- NOTE | 2021-06-09 17:49 | ED ---
Fall HPI - General Chief Complaint: Fall Stated Complaint: fell down 4 steps, hit head Time Seen by Provider: 06/09/21 17:24 Source: patient Mode of arrival: ambulatory - History of Present Illness Initial Comments: 56-year-old male with past medical history of chronic back pain presents to the emergency department after he fell down some stairs. States that he was painting a staircase. He felt that he was on the bottom step however he was not. He was 3 steps up when he turned to his left side. He unfortunately fell down the 3 steps onto his left flank. Reports that he hit his head on a table. Denies any loss consciousness. Is complaining of some right-sided neck pain and left flank plain. Patient is on blood thinners. No chest pain or shortness of breath. Took 2 Aleve at home and is able to ambulate however pain was pretty significant therefore he came in for evaluation. Denies any headaches or visual changes. No anterior abdominal pain. No other alleviating, precipitating factors - Related Data Home Medications Medication Instructions Recorded Confirmed Atorvastatin [Lipitor] 10 mg PO DAILY 08/11/15 06/09/21 Losartan Potassium 100 mg PO DAILY 07/02/17 06/09/21 Pioglitazone [Actos] 30 mg PO DAILY 07/02/17 06/09/21 Semaglutide [Rybelsus] 14 mg PO DAILY 06/09/21 06/09/21 Sildenafil Citrate 100 mg PO DAILY PRN 06/09/21 06/09/21 Testosterone [Androgel 1.62% Gel 1 pump TOPICAL DAILY 06/09/21 06/09/21 Pump] glipiZIDE [Glucotrol] 5 mg PO BID 06/09/21 06/09/21 metFORMIN HCL [Glucophage] 1,000 mg PO BID 06/09/21 06/09/21 Previous Rx's Medication Instructions Recorded HYDROcodone/APAP 7.5-325MG [Hancock 1 tab PO Q4HR PRN #18 tab 06/09/21 7.5-325] Allergies Allergy/AdvReac Type Severity Reaction Status Date / Time dapagliflozin [From [facility]] AdvReac UTI Verified 06/09/21 20:17 Review of Systems ROS Statement: Those systems with pertinent positive or pertinent negative responses have been documented in the HPI. ROS Other: All systems not noted in ROS Statement are negative. Past Medical History Past Medical History: Diabetes Mellitus, Hyperlipidemia, Hypertension Additional Past Medical History / Comment(s): NIDDM type II. Arthritis entire spine. UTIs. Diverticulos. History of Any Multi-Drug Resistant Organisms: C-DIFF Date of last positivie culture/infection: 2017 MDRO Source:: stool Past Surgical History: Adenoidectomy, Appendectomy, Tonsillectomy Additional Past Surgical History / Comment(s): circumsions, colonoscopy with benign polypectomy Past Anesthesia/Blood Transfusion Reactions: No Reported Reaction Past Psychological History: No Psychological Hx Reported Smoking Status: Former smoker Past Alcohol Use History: Rare Past Drug Use History: None Reported - Past Family History Mother Family Medical History: Cancer, Diabetes Mellitus Additional Family Medical History / Comment(s): ca: colon. Mother of diabetic complications in her 60s. Father Family Medical History: Myocardial Infarction ([place]), Renal Disease Additional Family Medical History / Comment(s): from [place] at the age of 44 yrs, "[place] was d/t an illness, that caused the heart attack", kidney disease General Exam Limitations: no limitations Course Vital Signs 06/09/21 06/09/21 16:05 20:36 Temperature 97.8 F 98.5 F Pulse Rate 83 87 Respiratory 20 22 Rate Blood Pressure 187/102 144/84 O2 Sat by Pulse 97 98 Oximetry Medical Decision Making - Medical Decision Making Upon arrival patient placed into room 29. He is given 1 mg of IM Dilaudid for pain control. Patient taken for CT of his head, cervical spine, lumbar spine and abdomen and pelvis. 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 No acute compression fractures. No rib fractures. No abdominal trauma identified. Patient is reevaluated and standing comfortably in the room. He care to be discharged at this time. He will be given a prescription for Hancock at home. Instructed to alternate taking this with Motrin. Follow-up with primary care doctor in 2-4 days and return for any new or worsening symptoms. I did recommend a follow-up with orthopedic doctor for his CT findings of his lumbar spine. Patient states he must be seen there is primary care office prior to referral therefore he will see his PCP for first. Patient agreed and treatment plan was discharged with stable condition Disposition Clinical Impression: Fall down stairs, Left flank pain, Neck pain, Blunt head trauma Disposition: HOME SELF-CARE Condition: Stable Instructions (If sedation given, give patient instructions): Head Injury (ED), Fall Prevention (ED) Additional Instructions: Please take the pain medications as directed. Follow up with your primary care doctor in 2-4 days. You may alternate the Hancock with Motrin however do not take any additional Tylenol products. Return for any new or worsening symptoms Prescriptions: HYDROcodone/APAP 7.5-325MG [Hancock 7.5-325] 1 tab PO Q4HR PRN #18 tab PRN Reason: Pain Is patient prescribed a controlled substance at d/c from ED?: Yes When asked, does pt state using other controlled substances?: No If prescribed controlled substance>3 days was MAPS reviewed?: Prescribed <3 Days If opioid is for acute pain is fill amount 7 days or less?: Yes If Rx opioid, was Start Talking consent form obtained?: Yes Referrals: Devonte Juarez MD [Primary Care Provider] - 1-2 days Time of Disposition: 20:32
--- NOTE | 2021-06-09 18:39 | CT ---
EXAMINATION TYPE: CT brain cspine wo con CT DLP: 2131 mGycm, Automated exposure control for dose reduction was used. DATE OF EXAM: 06/09/2021 6:26 PM COMPARISON: None.. CLINICAL INDICATION:Male, 56 years old with history of fall, head injury; Fall. TECHNIQUE: Brain: Multiple axial CT images of the brain were obtained without IV contrast. Cspine: Axial CT images from the skull base to the inferior aspect of T2 we obtained without intraven ous contrast. Coronal and sagittal reformatted images were also reviewed. FINDINGS: Brain: Extra-axial spaces: No abnormal extra-axial fluid collections. Ventricular system: Within normal limits Cerebral parenchyma: No acute intraparenchymal hemorrhage or mass effect. The osborne-white junction is well differentiated. Cerebellum: Unremarkable. Mass effect: No evidence of midline shift. Intracranial vasculature: Atherosclerotic calcifications of the intracranial vessels. Soft tissues: Left posterior scalp edema. Calvarium/osseous structures: No depressed skull fracture. Paranasal sinuses and mastoid air cells: Mucosal thickening scattered throughout the visualized paran yoan sinuses. Visualized orbits: Orbital contents are intact. Cervical spine: Fracture: None. Osseous structures: Multilevel degenerative disc disease changes with endplate spurring and disc oste ophyte complex's. Congenital nonfusion of the posterior arch of C1. Vertebral alignment: Within normal limits. Spinal canal/Neural Foramina: No evidence of significant spinal canal narrowing. Neck soft tissues: Prevertebral soft tissues are within normal limits. Enlarged thyroid gland bilater ally. Calcification of the nuchal ligament. Other: The airway is patent. The lung apices are clear. IMPRESSION: 1. No acute intracranial process. 2. Left posterior scalp edema. 3. No evidence of cervical spine fracture. 4. Moderate multilevel degenerative disc disease. 5. Enlarged thyroid gland bilaterally correlate with serum markers and consider dedicated thyroid ult rasound. 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
--- NOTE | 2021-06-09 18:48 | CT ---
EXAMINATION TYPE: CT lumbar spine wo con CT DLP: 3053.4 mGycm, Automated exposure control for dose reduction was used. DATE OF EXAM: 06/09/2021 6:28 PM COMPARISON: CT abdomen pelvis 03/22/2013. CLINICAL INDICATION:Male, 56 years old with history of fall, blunt abd trauma, Fall. TECHNIQUE: Multiple axial images were obtained from the midportion of T11 through the sacroiliac jose nts. Soft tissue and bone windows in coronal and sagittal planes were obtained and reviewed. 3-D ref ormats of the bones were created on a separate workstation and submitted for review. FINDINGS: Alignment: There are 5 lumbar type vertebral bodies within normal alignment. Bone: No evidence of fracture is identified. Multilevel disc degeneration with osteophyte formation of the visualized spine. A/process are fused at L3-L4 and partially fused L4-L5. Supraspinous ligamen t is also fused in the visualized portions of T9 through L1. Moderate degenerative changes of the sac roiliac joints with suggestive L5 transitional vertebrae. Discs: T12-L1: Facet joint arthropathy disc degeneration results in moderate bilateral neural foraminal narr owing and mild spinal canal stenosis. L1-L2: Facet joint arthropathy disc degeneration results in severe bilateral neural foraminal stenos is and moderate spinal canal stenosis. L2-L3: Facet joint arthropathy disc degeneration results in severe bilateral neural foraminal stenosi s and severe spinal canal stenosis. L3-L4: Facet joint arthropathy disc degeneration results in severe right and moderate left neural for aminal stenosis and severe spinal canal stenosis. L4-L5: Facet joint arthropathy disc degeneration results in moderate bilateral neural foraminal sten osis and severe spinal canal stenosis. L5-S1: Facet joint arthropathy disc degeneration results in severe right and moderate left neural for aminal stenosis and severe spinal canal stenosis. 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 IMPRESSION: 1. No evidence of fracture of the lumbar spine. 2. Severe multilevel degenerative disc disease changes with facet joint arthropathy resulting in mult ilevel severe spinal canal and neural foraminal stenosis throughout the lumbar spine. 3. Ankylosis of the spinous processes and supraspinous ligaments seen throughout the visualized spine . This can be seen in setting of ankylosing spondylolysis.
--- NOTE | 2021-06-09 18:57 | CT ---
EXAMINATION TYPE: CT abdomen pelvis wo con CT DLP: 3053.4 mGycm, Automated exposure control for dose reduction was used. DATE OF EXAM: 06/09/2021 6:27 PM COMPARISON: CT abdomen pelvis most recent from 03/22/2018. CLINICAL INDICATION:Male, 56 years old with history of fall, blunt abd trauma; Fall. TECHNIQUE: Standard CT of the abdomen and pelvis without IV or oral contrast. Lack of IV or oral co ntrast limits evaluation of solid and hollow organ viscera. Coronal and sagittal reformats were perfo rmed. FINDINGS: LOWER CHEST: Unremarkable ABDOMEN LIVER: Unremarkable GALLBLADDER AND BILE DUCTS: Unremarkable. PANCREAS: Fatty atrophy changes.. SPLEEN: Small splenule is present. ADRENAL GLANDS: Two left adrenal myelolipoma is measuring up to 36 mm. KIDNEYS AND URETERS: No evidence of hydronephrosis or renal calculus. The ureters are unremarkable. PELVIS BLADDER: Unremarkable REPRODUCTIVE: Prostate is enlarged in size measuring 5.6 cm in transverse dimension. ABDOMEN & PELVIS STOMACH AND BOWEL: No evidence of bowel obstruction. Scattered colonic diverticulosis present throug hout the colon. PERITONEUM: No evidence of pneumoperitoneum or free fluid. VASCULATURE: Moderate atherosclerotic calcifications are present throughout the abdominal aorta and i ts branches. MUSCULOSKELETAL: Severe disc degeneration changes are present throughout the thoracolumbar spine resu lting in multilevel severe spinal canal and neural foraminal stenosis. Calcified bridging supraspinou s ligaments and sacroiliac joint partial ankylosis. Mild scoliosis changes of the spine. LYMPH NODES: No gross evidence for lymphadenopathy SOFT TISSUE/ABDOMINAL WALL: Fat filled umbilical hernia measuring 0.8 cm at the neck. IMPRESSION: 1. No evidence for acute intra-abdominal process. 2. Left adrenal myolipoma's. 3. Severe multilevel disc degeneration changes and multilevel severe spinal canal and neural foramina l stenosis. 4. Calcified bridging supraspinous ligaments and sacroiliac joint partial ankylosis which may seen in setting of ankylosing spondylitis. 5. Prostatomegaly. 6. Colonic diverticulosis. 7. Septal umbilical hernia.
[2021-06-09] MEDS ORDERED: CYCLOBENZAPRINE 10MG STARTER 3 TAB BTL PO STA (20:28)
[2021-06-09 20:37] VITALS: BP 144/84; PULSE 87; RESP 22; TEMP 98.5
== END 2021-06-09 20:36 | disposition home or self-care (01) ==
LOC: EC 16:02
DX: S09.90XA Unspecified injury of head, initial encounter (principal); R10.9 Unspecified abdominal pain; M54.2 Cervicalgia; E11.9 Type 2 diabetes mellitus without complications; I10 Essential (primary) hypertension; E78.5 Hyperlipidemia, unspecified; Z87.891 Personal history of nicotine dependence; Z79.84 Long term (current) use of oral hypoglycemic drugs; Z79.899 Other long term (current) drug therapy; W10.9XXA Fall (on) (from) unspecified stairs and steps, initial encounter
CPT/HCPCS: 72125; 72131; 70450; 74176; 99284; 96372; J1170

== ENCOUNTER 2021-09-20 18:27 | Inpatient (IN) | payer BC ==
[2021-09-20] MEDS ORDERED: ACETAMINOPHEN TAB 500 MG TAB PO STA (20:41)
[2021-09-20] MEDS ORDERED: IBUPROFEN 600 MG TAB PO STA (20:42)
[2021-09-20 21:45] LABS: Appearance,Urine Cloudy (Clear); Bacteria,Urine Occasional /hpf; Bilirubin,Urine Negative (Negative); Blood,Urine Small (Negative); Color,Urine Yellow; Glucose,Urine (UA) Trace (Negative); Ketones,Urine Negative (Negative); Leukocyte Esterase,Urine Large (Negative); Mucus,Urine Few /hpf; Nitrite,Urine Positive (Negative); PH, Urine 5.5 (5.0-8.0); Protein,Urine Trace (Negative); RBC,Urine 4 /hpf (0-5); Specific Gravity,Urine 1.021 (1.001-1.035); Urobilinogen,Urine <2.0 mg/dL (<2.0); WBC,Urine >182 /hpf (0-5)
[2021-09-21] MEDS ORDERED: SODIUM CHLORIDE 0.9% 500 ML 500 ML IV STA (00:48)
[2021-09-21] MEDS ORDERED: SODIUM CHLORIDE 0.9% 1,000 ML IV STA (00:48)
--- NOTE | 2021-09-21 00:49 | ED ---
Male Urogenital HPI - General Chief complaint: Urogenital Stated complaint: Urogenital,Fever Time Seen by Provider: 09/21/21 00:47 Source: patient, RN notes reviewed, old records reviewed Mode of arrival: ambulatory Limitations: no limitations - History of Present Illness Initial comments: This is a 56-year-old male to the ER for evaluation. Patient presents for severe and significant weakness today. Patient is weakness history of UTI with sepsis and fever. Again. No nausea no vomiting currently. No diarrhea. No cough congestion sore throat no known sick contacts MD Complaint: dysuria -: days(s) Location: penis Radiation: none Severity: severe Severity scale (1-10): 9 Quality: burning Consistency: constant Improves with: none Worsens with: urination Reports: dysuria - Related Data Home Medications Medication Instructions Recorded Confirmed Atorvastatin [Lipitor] 10 mg PO DAILY 08/11/15 09/21/21 Losartan Potassium 100 mg PO DAILY 07/02/17 09/21/21 Pioglitazone [Actos] 30 mg PO DAILY 07/02/17 09/21/21 Semaglutide [Rybelsus] 14 mg PO DAILY 06/09/21 09/21/21 Testosterone [Androgel 1.62% Gel 1 pump TOPICAL DAILY 06/09/21 09/21/21 Pump] glipiZIDE [Glucotrol] 5 mg PO DAILY 06/09/21 09/21/21 metFORMIN HCL [Glucophage] 1,000 mg PO BID 06/09/21 09/21/21 Cyclobenzaprine [Flexeril] 5 - 10 mg PO HS PRN 09/21/21 09/21/21 Finasteride [Proscar] 5 mg PO DAILY 09/21/21 09/21/21 Tamsulosin [Flomax] 0.4 mg PO DAILY 09/21/21 09/21/21 Previous Rx's Medication Instructions Recorded Cefpodoxime Proxetil [Vantin] 200 mg PO Q12HR #14 tab 09/23/21 Allergies Allergy/AdvReac Type Severity Reaction Status Date / Time dapagliflozin [From [facility]] AdvReac UTI Verified 09/21/21 07:52 Review of Systems ROS Statement: Those systems with pertinent positive or pertinent negative responses have been documented in the HPI. ROS Other: All systems not noted in ROS Statement are negative. Past Medical History Past Medical History: Diabetes Mellitus, Hyperlipidemia, Hypertension Additional Past Medical History / Comment(s): NIDDM type II. Arthritis entire spine. UTIs. Diverticulos. History of Any Multi-Drug Resistant Organisms: C-DIFF Date of last positivie culture/infection: 2017 MDRO Source:: stool Past Surgical History: Adenoidectomy, Appendectomy, Tonsillectomy Additional Past Surgical History / Comment(s): circumsions, colonoscopy with benign polypectomy Past Anesthesia/Blood Transfusion Reactions: No Reported Reaction Past Psychological History: No Psychological Hx Reported Smoking Status: Former smoker Past Alcohol Use History: Rare Past Drug Use History: None Reported - Past Family History Mother Family Medical History: Cancer, Diabetes Mellitus Additional Family Medical History / Comment(s): ca: colon. Mother of diabetic complications in her 60s. Father Family Medical History: Myocardial Infarction ([place]), Renal Disease Additional Family Medical History / Comment(s): from [place] at the age of 44 yrs, "[place] was d/t an illness, that caused the heart attack", kidney disease General Exam Limitations: no limitations General appearance: alert, lethargic Head exam: Present: atraumatic, normocephalic, normal inspection Eye exam: Present: normal appearance, PERRL, EOMI. Absent: scleral icterus, conjunctival injection, periorbital swelling ENT exam: Present: normal exam, mucous membranes moist Neck exam: Present: normal inspection. Absent: tenderness, meningismus, lymphadenopathy Respiratory exam: Present: normal lung sounds bilaterally. Absent: respiratory distress, wheezes, rales, rhonchi, stridor Cardiovascular Exam: Present: regular rate, normal rhythm, normal heart sounds. Absent: systolic murmur, diastolic murmur, rubs, gallop, clicks GI/Abdominal exam: Present: soft, normal bowel sounds. Absent: distended, tenderness, guarding, rebound, rigid Extremities exam: Present: normal inspection, full ROM, normal capillary refill. Absent: tenderness, pedal edema, joint swelling, calf tenderness Back exam: Present: normal inspection Neurological exam: Present: alert, oriented X3, CN II-XII intact Psychiatric exam: Present: normal affect, normal mood Skin exam: Present: warm, dry, intact, normal color. Absent: rash Course Vital Signs 09/20/21 09/21/21 09/21/21 20:36 02:41 03:00 Temperature 101.6 F H Pulse Rate 101 H 74 70 Pulse Rate [ Pulse Oximetery ] Respiratory 18 Rate Blood Pressure 180/79 166/95 151/88 Blood Pressure [Left Arm] O2 Sat by Pulse 96 97 97 Oximetry 09/21/21 09/21/21 09/21/21 04:00 06:00 07:00 Temperature 98.9 F 98.3 F Pulse Rate 74 Pulse Rate [ 79 Pulse Oximetery ] Respiratory 18 Rate Blood Pressure 166/82 Blood Pressure 159/91 [Left Arm] O2 Sat by Pulse 97 97 Oximetry - Reevaluation(s) Reevaluation #1: 09/21/21 Medical record is reviewed Reevaluation #2: 09/21/21 Patient informed results questions answered Reevaluation #3: 09/21/21 Patient has no improvement here in the ER - Consultations Consultation #1: Spoke with [facility] [place] physicians who agree to admit this patient Medical Decision Making - Medical Decision Making 56 male to the ER today fever urinary tract infection sepsis will admit for IV antibiotics and fluid resuscitation - Lab Data Result diagrams: 09/23/21 10:15 09/23/21 10:15 Lab Results 09/20/21 Range/Units 20:47 Urine Color Yellow Urine Appearance Cloudy (Clear) Urine pH 5.5 (5.0-8.0) Ur Specific [place] 1.021 (1.001-1.035) Urine Protein Trace H (Negative) Urine Glucose (UA) Trace H (Negative) Urine Ketones Negative (Negative) Urine Blood Small H (Negative) Urine Nitrite Positive (Negative) Urine Bilirubin Negative (Negative) Urine Urobilinogen <2.0 (<2.0) mg/dL Ur Leukocyte Esterase Large H (Negative) Urine RBC 4 (0-5) /hpf Urine WBC >182 H (0-5) /hpf Urine Bacteria Occasional H (None) /hpf Urine Mucus Few H (None) /hpf - EKG Data -: EKG Interpreted by Me (EKG sinus 90. MN 151 QRS or QTC 403) Critical Care Time Critical Care Time: Yes Total Critical Care Time: 31 Disposition Clinical Impression: Urinary tract infection, Sepsis, Fever Disposition: ADMITTED IP TO THIS [facility] Condition: Stable Is patient prescribed a controlled substance at d/c from ED?: No Time of Disposition: 02:10
[2021-09-21] MEDS ORDERED: NALOXONE 0.4 MG/ML 1 ML VIAL IV PRN (02:22)
[2021-09-21] MEDS: SODIUM CHLORIDE 0.9% 1,000 ML IV STA ×2 (02:45→03:45)
[2021-09-21 03:00] LABS: Basophils % (A) 0 %; Eosinophils # (A) 0.1 k/uL (0-0.7); Eosinophils % (A) 1 %; HCT 45.2 % (39.0-53.0); HGB 15.2 gm/dL (13.0-17.5); Lymphocytes # (A) 1.4 k/uL (1.0-4.8); Lymphocytes % (A) 8 %; MCH 31.8 pg (25.0-35.0); MCHC 33.6 g/dL (31.0-37.0); MCV 94.6 fL (80.0-100.0); Mean Platelet Volume 7.2; Monocytes # (A) 1.2 k/uL (0-1.0); Monocytes % (A) 6 %; Neutrophils # (A) 15.5 k/uL (1.3-7.7); Neutrophils % (A) 84 %; Platelet Count 181 k/uL (150-450); RBC 4.77 m/uL (4.30-5.90); WBC 18.5 k/uL (3.8-10.6)
[2021-09-21 03:16] LABS: ALT 26 U/L (4-49); AST 18 U/L (17-59); African American GFR (CKD) >90 (>60 ml/min/1.73 sqM); Albumin 4.1 g/dL (3.5-5.0); Alkaline Phosphatase 71 U/L (38-126); Anion Gap 8 mmol/L; Blood Urea Nitrogen 14 mg/dL (9-20); Calcium 9.1 mg/dL (8.4-10.2); Carbon Dioxide 28 mmol/L (22-30); Chloride 100 mmol/L (98-107); Glucose 157 mg/dL (74-99); Magnesium 1.7 mg/dL (1.6-2.3); Non-African American GFR(CKD) >90 (>60 ml/min/1.73 sqM); Phosphorus 4.1 mg/dL (2.5-4.5); Potassium 3.7 mmol/L (3.5-5.1); Sodium 136 mmol/L (137-145); Total Bilirubin 1.1 mg/dL (0.2-1.3)
--- NOTE | 2021-09-21 04:25 | P.HPIM ---
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 The patient reportedly urinates via an opening in the perineum below the scrotum which was formed during th penile repair. Patient reports that his symptoms started suddenly this afternoon while he was at work. He reports having difficulty urinating, developing suprapubic discomfort, and then a fever at home of 10 1F. In the emergency room, a UA was grossly abnormal with telemetry luciano luation remarkable for WBC count of 18.5, glucose 157, sodium 136. The patient's T-max in the emergency room was 101.6F. Review of systems: Pertinent positives and negatives as discussed in HPI, a complete review of systems was performed and all other systems are negative. Physical examination: General: non toxic, no distress, appears at stated age, morbidly obese Derm: no unusual rashes/lesions, warm Head: atraumatic, normocephalic, symmetric Eyes: EOMI, no lid lag, anicteric sclera, pupils equal round reactive to light ENT: Nose and ears atraumatic Neck: No cervical lymphadenopathy, trachea midline, supple Mouth: no lip lesion, mucus membranes moist Cardiovascular: S1S2 reg, no murmur, positive dorsalis pedis pulse bilateral, no edema Lungs: CTA bilateral, no rhonchi, no rales, no accessory muscle use Abdominal: soft, nontender to palpation, no guarding Ext: muscle strength 5 out of 5 in all 4 extremities grossly, no gross muscle atrophy, no contractures, Neuro: CN II-XI grossly intact, no gross focal neuro deficits Psych: Alert, oriented, appropriate affect : Perineal opening noted without discharge or surrounding erythema Assessment/plan Sepsis secondary to UTI -Urine and blood cultures in 2018 grew pansensitive Klebsiella -Continue with ceftriaxone -Follow up cultures -Urology consulted -IV fluids Chronic conditions: Type II DM, hypertension, hyperlipidemia -Insulin sliding scale and blood glucose monitoring -Continue the remaining home medications DVT prophylaxis -Heparin subcu The patient is admitted with an anticipated greater than 2 midnight stay for evaluation of urosepsis. CODE STATUS: Full Code Discussed with: Patient Anticipated discharge date: 2-[address]: Home Past Medical History Past Medical History: Diabetes Mellitus, Hyperlipidemia, Hypertension Additional Past Medical History / Comment(s): NIDDM type II. Arthritis entire spine. UTIs. Diverticulos. History of Any Multi-Drug Resistant Organisms: C-DIFF Date of last positivie culture/infection: 2017 MDRO Source:: stool Past Surgical History: Adenoidectomy, Appendectomy, Tonsillectomy Additional Past Surgical History / Comment(s): circumsions, colonoscopy with b enign polypectomy Past Anesthesia/Blood Transfusion Reactions: No Reported Reaction Past Psychological History: No Psychological Hx Reported Smoking Status: Former smoker Past Alcohol Use History: Rare Past Drug Use History: None Reported - Past Family History Mother Family Medical History: Cancer, Diabetes Mellitus Additional Family Medical History / Comment(s): ca: colon. Mother of d iabetic complications in her 60s. Father Family Medical History: Myocardial Infarction ([place]), Renal Disease Additional Family Medical History / Comment(s): from [place] at the age of 44 yrs, "[place] was d/t an illness, that caused the heart attack", kidney disease Medications and Allergies Home Medications Medication Instructions Recorded Confirmed Type Atorvastatin [Lipitor] 10 mg PO DAILY 08/11/15 06/09/21 History Losartan Potassium 100 mg PO DAILY 07/02/17 06/09/21 History Pioglitazone [Actos] 30 mg PO DAILY 07/02/17 06/09/21 History HYDROcodone/APAP 7.5-325MG [[place] 1 tab PO Q4HR PRN #18 tab 06/09/21 Rx 7.5-325] Semaglutide [Rybelsus] 14 mg PO DAILY 06/09/21 06/09/21 History Sildenafil Citrate 100 mg PO DAILY PRN 06/09/21 06/09/21 History Testosterone [Androgel 1.62% Gel 1 pump TOPICAL DAILY 06/09/21 06/09/21 History Pump] glipiZIDE [Glucotrol] 5 mg PO BID 06/09/21 06/09/21 History metFORMIN HCL [Glucophage] 1,000 mg PO BID 06/09/21 06/09/21 History Allergies Allergy/AdvReac Type Severity Reaction Status Date / Time dapagliflozin [From [facility]] AdvReac UTI Verified 09/20/21 20:41 Physical Exam Vitals: Vital Signs Temp Pulse Resp BP Pulse Ox 09/21/21 02:41 74 166/95 97 09/20/21 20:36 101.6 F H 101 H 18 180/79 96 Intake and Output 09/20/21 09/20/21 09/21/21 14:59 22:59 06:59 Other: Weight 158.757 kg Results CBC & Chem 7: 09/21/21 02:41 09/21/21 02:41 Labs: Abnormal Lab Results - Last 24 Hours (Table) 09/20/21 09/21/21 09/21/21 Range/Units 20:47 02:41 02:41 WBC 18.5 H (3.8-10.6) k/uL Neutrophils # 15.5 H (1.3-7.7) k/uL Monocytes # 1.2 H (0-1.0) k/uL Sodium 136 L (137-145) mmol/L Glucose 157 H (74-99) mg/dL Urine Protein Trace H (Negative) Urine Glucose (UA) Trace H (Negative) Urine Blood Small H (Negative) Ur Leukocyte Esterase Large H (Negative) Urine WBC >182 H (0-5) /hpf Urine Bacteria Occasional H (None) /hpf Urine Mucus Few H (None) /hpf Microbiology - Last 24 Hours (Table) 09/20/21 20:47 Urine Culture - Preliminary Urine,Voided
[2021-09-21 07:47] LABS: Glucose,Whole Blood 165 mg/dL (70-110)
[2021-09-21] MEDS: INSULIN ASPART (NovoLOG) 100 UNIT/ML VIAL SQ SCH ×4 (07:55→21:15)
[2021-09-21] MEDS: HEPARIN SODIUM,PORCINE/PF 5,000 UNIT/0.5 ML SYRINGE SQ SCH ×3 (07:55→23:44)
[2021-09-21] MEDS: SODIUM CHLORIDE 0.9% 1,000 ML IV SCH ×3 (07:56→21:15)
[2021-09-21 10:48] LABS: Glucose,Whole Blood 184 mg/dL (70-110)
[2021-09-21] MEDS ORDERED: LORazepam 2 MG/ML INJ IV PRN (11:03)
[2021-09-21] MEDS ORDERED: ONDANSETRON 4 MG/2 ML VIAL IVP PRN (11:03)
[2021-09-21] MEDS ORDERED: CYCLOBENZAPRINE 5 MG TAB PO PRN (11:07)
[2021-09-21] MEDS: ACETAMINOPHEN TAB 325 MG TAB PO PRN ×2 (11:32→23:47)
[2021-09-21] MEDS ORDERED: HYDROcodone/APAP 5-325MG 1 EACH TAB PO PRN (12:33)
[2021-09-21] MEDS ORDERED: LORazepam 0.5 MG TAB PO PRN (15:06)
[2021-09-21 16:53] LABS: Glucose,Whole Blood 156 mg/dL (70-110)
--- NOTE | 2021-09-21 17:11 | P.PN ---
Subjective Progress Note Date: 09/21/21 (delayed charting seen at 1245 ) Patient is a 56-year-old male with multiple prior issues with urethral scarring now up with urination occurring in the perianal area. Multiple urinary tract infections, diabetes, hypertension, and dyslipidemia who presented to the emergency department with dysuria. He underwent an extensive evaluation was ultimately found to have urinary tract infection with sepsis or if she was started on IV antibiotics and was admitted. Patient seen and examined at bedside. He reports that he has had multiple urinary tract infections. He used to have issues with urinary retention and follows with the urologist out of [facility]. He is having some nausea and abdominal pain. He is feeling slightly better than on admission. General: nontoxic, no distress, appears at stated age Derm: warm, dry Head: atraumatic, normocephalic, symmetric Eyes: EOMI, no lid lag, anicteric sclera Mouth: no lip lesion, mucus membranes moist Cardiovascular: S1S2 reg, no murmur, positive posterior tibial pulse bilateral, Lungs: CTA bilateral, no rhonchi, no rales , no accessory muscle use Abdominal: soft, nontender to palpation, no guarding, no appreciable organom egaly Perineum: opening in perineum without erythema/discharge/or cascous material Ext: no gross muscle atrophy, no edema, no contractures Neuro: CN II-XI grossly intact, no focal neuro deficits Psych: Alert, oriented, appropriate affect Assessment/plan UTI with Sepsis, POA -Urine and blood cultures in 2018 grew pansensitive Klebsiella -Continue with ceftriaxone -Follow up cultures -IV fluids - urology consult if no improvement - review records from [facility] DM II with hyperglycemia - SSI, semiglutide - hold metformin, glipizide, and actos HTN, controlled - follow BP - cozaar HLD - statin Obesity wtih BMI 46.2 - structured outaptient weight loss Objective - Vital Signs Vital signs: Vital Signs Temp 98.2 F 09/21/21 13:00 Pulse 94 09/21/21 13:00 Resp 18 09/21/21 13:00 BP 147/82 09/21/21 13:00 Pulse Ox 94 L 09/21/21 16:12 FiO2 21 09/21/21 16:12 Intake & Output 06/22/22 06/23/22 06/23/22 18:59 06:59 18:59 Intake Total 400 Balance 400 Weight 158.757 kg 158.757 kg Intake: Oral 400 Other: Voiding Method Toilet # Voids 1 - Labs CBC & Chem 7: 09/21/21 02:41 09/21/21 02:41 Labs: Abnormal Lab Results - Last 24 Hours (Table) 09/20/21 09/21/21 09/21/21 Range/Units 20:47 02:41 02:41 WBC 18.5 H (3.8-10.6) k/uL Neutrophils # 15.5 H (1.3-7.7) k/uL Monocytes # 1.2 H (0-1.0) k/uL Sodium 136 L (137-145) mmol/L Glucose 157 H (74-99) mg/dL POC Glucose (mg/dL) (70-110) mg/dL Urine Protein Trace H (Negative) Urine Glucose (UA) Trace H (Negative) Urine Blood Small H (Negative) Ur Leukocyte Esterase Large H (Negative) Urine WBC >182 H (0-5) /hpf Urine Bacteria Occasional H (None) /hpf Urine Mucus Few H (None) /hpf 09/21/21 09/21/21 09/21/21 Range/Units 07:44 10:47 16:51 WBC (3.8-10.6) k/uL Neutrophils # (1.3-7.7) k/uL Monocytes # (0-1.0) k/uL Sodium (137-145) mmol/L Glucose (74-99) mg/dL POC Glucose (mg/dL) 165 H 184 H 156 H (70-110) mg/dL Urine Protein (Negative) Urine Glucose (UA) (Negative) Urine Blood (Negative) Ur Leukocyte Esterase (Negative) Urine WBC (0-5) /hpf Urine Bacteria (None) /hpf Urine Mucus (None) /hpf Microbiology - Last 24 Hours (Table) 09/20/21 20:47 Urine Culture - Preliminary Urine,Voided
[2021-09-21 21:08] LABS: Glucose,Whole Blood 127 mg/dL (70-110)
[2021-09-22] MEDS: SODIUM CHLORIDE 0.9% 1,000 ML IV SCH ×4 (03:29→23:34)
[2021-09-22 07:07] LABS: Glucose,Whole Blood 142 mg/dL (70-110)
[2021-09-22 08:03] LABS: HCT 41.3 % (39.0-53.0); HGB 13.5 gm/dL (13.0-17.5); MCH 31.3 pg (25.0-35.0); MCHC 32.7 g/dL (31.0-37.0); MCV 95.8 fL (80.0-100.0); Mean Platelet Volume 7.2; Platelet Count 166 k/uL (150-450); RBC 4.31 m/uL (4.30-5.90); RDW 13.5 % (11.5-15.5)
[2021-09-22 08:18] LABS: African American GFR (CKD) >90 (>60 ml/min/1.73 sqM); Anion Gap 6 mmol/L; Blood Urea Nitrogen 11 mg/dL (9-20); Calcium 8.2 mg/dL (8.4-10.2); Carbon Dioxide 26 mmol/L (22-30); Chloride 105 mmol/L (98-107); Glucose 146 mg/dL (74-99); Non-African American GFR(CKD) >90 (>60 ml/min/1.73 sqM); Sodium 137 mmol/L (137-145)
[2021-09-22] MEDS: LOSARTAN 50 MG TAB PO SCH (08:47)
[2021-09-22] MEDS: TAMSULOSIN 0.4 MG CAP.ER.24H PO SCH (08:47)
[2021-09-22] MEDS: ATORVASTATIN 10 MG TAB PO SCH (08:47)
[2021-09-22] MEDS: HEPARIN SODIUM,PORCINE/PF 5,000 UNIT/0.5 ML SYRINGE SQ SCH ×3 (08:47→23:34)
[2021-09-22] MEDS: INSULIN ASPART (NovoLOG) 100 UNIT/ML VIAL SQ SCH ×4 (08:52→21:41)
[2021-09-22] MEDS: FINASTERIDE 5 MG TAB PO SCH (08:52)
[2021-09-22] MEDS: PATIENT'S OWN (Semaglutide [Rybelsus] 14 MG Tablet) PO SCH (09:00)
[2021-09-22 11:55] LABS: Glucose,Whole Blood 130 mg/dL (70-110)
[2021-09-22] MEDS: ACETAMINOPHEN TAB 325 MG TAB PO PRN ×2 (14:14→21:44)
--- NOTE | 2021-09-22 16:53 | P.PN ---
Subjective Progress Note Date: 09/22/21 (delayed charting seen at 0930) Patient is a 56-year-old male with multiple prior issues with urethral scarring now up with urination occurring in the perianal area. Multiple urinary tract infections, diabetes, hypertension, and dyslipidemia who presented to the emergency department with dysuria. He underwent an extensive evaluation was ultimately found to have urinary tract infection with sepsis or if she was started on IV antibiotics and was admitted. Patient seen and examined at bedside. ABD pain is better, no chest pain, no shortness of breath, no nausea, no vomiting. General: nontoxic, no distress, appears at stated age Derm: warm, dry Head: atraumatic, normocephalic, symmetric Eyes: EOMI, no lid lag, anicteric sclera Mouth: no lip lesion, mucus membranes moist Cardiovascular: S1S2 reg, no murmur, positive posterior tibial pulse bilateral, Lungs: CTA bilateral, no rhonchi, no rales , no accessory muscle use Abdominal: soft, nontender to palpation, no guarding, no appreciable organomegaly Ext: no gross muscle atrophy, no edema, no contractures Neuro: CN II-XI grossly intact, no focal neuro deficits Psych: Alert, oriented, appropriate affect Assessment/plan UTI with Sepsis, POA -Urine and blood cultures in 2018 grew pansensitive Klebsiella -Continue with ceftriaxone -Await cultures -IV fluids DM II with hyperglycemia - SSI, semiglutide - hold metformin, glipizide, and actos HTN, controlled - follow BP - cozaar HLD - statin Obesity with BMI 46.2 - structured outpatient weight loss likely home in AM once culture results obtained. Objective - Vital Signs Vital signs: Vital Signs Temp 98.1 F 09/22/21 07:45 Pulse 89 09/22/21 07:45 Resp 20 09/22/21 08:56 BP 135/66 09/22/21 07:45 Pulse Ox 96 09/22/21 07:45 FiO2 21 09/21/21 16:12 Intake & Output 09/21/21 09/22/21 09/22/21 18:59 06:59 18:59 Intake Total 400 540 Output Total 500 Balance -100 540 Weight 158.757 kg Intake: Oral 400 540 Output: Urine 500 Other: Voiding Method Toilet Toilet Toilet # Voids 1 2 1 - Labs CBC & Chem 7: 09/22/21 07:34 09/22/21 07:34 Labs: Abnormal Lab Results - Last 24 Hours (Table) 09/21/21 09/21/21 09/22/21 Range/Units 16:51 21:06 06:56 WBC (3.8-10.6) k/uL Glucose (74-99) mg/dL POC Glucose (mg/dL) 156 H 127 H 142 H (70-110) mg/dL Calcium (8.4-10.2) mg/dL 09/22/21 09/22/21 09/22/21 Range/Units 07:34 07:34 11:53 WBC 15.0 H (3.8-10.6) k/uL Glucose 146 H (74-99) mg/dL POC Glucose (mg/dL) 130 H (70-110) mg/dL Calcium 8.2 L (8.4-10.2) mg/dL Microbiology - Last 24 Hours (Table) 09/20/21 20:47 Urine Culture - Preliminary Urine,Voided Gram Neg Bacilli 09/21/21 02:30 Blood Culture - Preliminary Blood No Growth after 24 hours
[2021-09-22 17:27] LABS: Glucose,Whole Blood 165 mg/dL (70-110)
[2021-09-22 21:38] LABS: Glucose,Whole Blood 178 mg/dL (70-110)
[2021-09-23 07:07] LABS: Glucose,Whole Blood 149 mg/dL (70-110)
[2021-09-23 07:21] VITALS: RESP 20
[2021-09-23] MEDS: HEPARIN SODIUM,PORCINE/PF 5,000 UNIT/0.5 ML SYRINGE SQ SCH ×2 (08:35→16:08)
[2021-09-23] MEDS: INSULIN ASPART (NovoLOG) 100 UNIT/ML VIAL SQ SCH ×3 (08:35→17:43)
[2021-09-23] MEDS: FINASTERIDE 5 MG TAB PO SCH (08:36)
[2021-09-23] MEDS: LOSARTAN 50 MG TAB PO SCH (08:36)
[2021-09-23] MEDS: TAMSULOSIN 0.4 MG CAP.ER.24H PO SCH (08:36)
[2021-09-23] MEDS: ATORVASTATIN 10 MG TAB PO SCH (08:36)
[2021-09-23] MEDS: ACETAMINOPHEN TAB 325 MG TAB PO PRN (08:39)
[2021-09-23 10:45] LABS: African American GFR (CKD) >90 (>60 ml/min/1.73 sqM); Anion Gap 5 mmol/L; Blood Urea Nitrogen 13 mg/dL (9-20); Calcium 8.2 mg/dL (8.4-10.2); Carbon Dioxide 27 mmol/L (22-30); Chloride 106 mmol/L (98-107); Glucose 156 mg/dL (74-99); Non-African American GFR(CKD) >90 (>60 ml/min/1.73 sqM); Potassium 3.9 mmol/L (3.5-5.1); Sodium 138 mmol/L (137-145)
[2021-09-23 11:22] LABS: HCT 41.3 % (39.0-53.0); HGB 13.3 gm/dL (13.0-17.5); MCH 31.1 pg (25.0-35.0); MCHC 32.2 g/dL (31.0-37.0); MCV 96.6 fL (80.0-100.0); Mean Platelet Volume 7.2; Platelet Count 162 k/uL (150-450); RBC 4.27 m/uL (4.30-5.90); RDW 13.8 % (11.5-15.5); WBC 5.4 k/uL (3.8-10.6)
[2021-09-23 12:00] LABS: Glucose,Whole Blood 136 mg/dL (70-110)
[2021-09-23] MEDS: PATIENT'S OWN (Semaglutide [Rybelsus] 14 MG Tablet) PO SCH (12:09)
[2021-09-23] MEDS: SODIUM CHLORIDE 0.9% 1,000 ML IV SCH (12:10)
[2021-09-23 14:50] VITALS: BP 169/86; PULSE 82; TEMP 97.9
[2021-09-23 16:59] LABS: Glucose,Whole Blood 198 mg/dL (70-110)
--- NOTE | 2021-09-23 17:30 | P.DS ---
Providers Date of admission: 09/21/21 02:22 Expected date of discharge: 09/23/21 Attending physician: Rachel Bell MD [facility] Hospital Course: Discharge Diagnosis: Gram-negative urinary tract infection, present on admission Sepsis DM II with hyperglycemia HTN, controlled HLD Obesity with BMI 46.2 Hospital Course: Patient is a 56-year-old male with multiple prior issues with urethral scarring now up with urination occurring in the perianal area. Multiple urinary tract infections, diabetes, hypertension, and dyslipidemia who presented to the emergency department with dysuria. He underwent an extensive evaluation was ultimately found to have urinary tract infection with sepsis and was started on IV antibiotics. Continue to progress well. His white blood cell count normalized and he is feeling back to baseline. He was determined stable for discharge. Urine culture was not any attempts discharged Follow-up: Primary care physician in 1-2 days, urologist in 1-2 weeks. Beta long discussion with the patient about considering cranberry extract to help with his recurrent urinary tract infections. I also reiterated the importance of proper hygiene give the location of his uretheral orifice. Patient seen and examined at bedside. Feeling better, back to baseline. Fmaily present at bedside and all questions answered. Vital signs reviewed and stable. General: nontoxic, no distress, appears at stated age, obese Derm: warm, dry Head: atraumatic, normocephalic, symmetric Eyes: EOMI, no lid lag, anicteric sclera Mouth: no lip lesion, mucus membranes moist Cardiovascular: S1S2 reg, no murmur, positive posterior tibial pulse bilateral, Lungs: CTA bilateral, no rhonchi, no rales , no accessory muscle use Abdominal: soft, nontender to palpation, no guarding, no appreciable organomegaly Ext: no gross muscle atrophy, no edema, no contractures Neuro: CN II-XI grossly intact, no focal neuro deficits Psych: Alert, oriented, appropriate affect A total of 32 minutes of time were spent preparing this complex discharge summary. Patient was discharged on 09/23/21. Patient Condition at Discharge: Stable Plan - Discharge Summary New Discharge Prescriptions: New Cefpodoxime Proxetil [Vantin] 200 mg PO Q12HR #14 tab Continue Atorvastatin [Lipitor] 10 mg PO DAILY Pioglitazone [Actos] 30 mg PO DAILY Losartan Potassium 100 mg PO DAILY metFORMIN HCL [Glucophage] 1,000 mg PO BID glipiZIDE [Glucotrol] 5 mg PO DAILY Semaglutide [Rybelsus] 14 mg PO DAILY Tamsulosin [Flomax] 0.4 mg PO DAILY Testosterone [Androgel 1.62% Gel Pump] 1 pump TOPICAL DAILY Cyclobenzaprine [Flexeril] 5 - 10 mg PO HS PRN PRN Reason: Muscle Spasm Finasteride [Proscar] 5 mg PO DAILY Discharge Medication List Atorvastatin [Lipitor] 10 mg PO DAILY 08/11/15 [History] Losartan Potassium 100 mg PO DAILY 07/02/17 [History] Pioglitazone [Actos] 30 mg PO DAILY 07/02/17 [History] Semaglutide [Rybelsus] 14 mg PO DAILY 06/09/21 [History] Testosterone [Androgel 1.62% Gel Pump] 1 pump TOPICAL DAILY 06/09/21 [History] glipiZIDE [Glucotrol] 5 mg PO DAILY 06/09/21 [History] metFORMIN HCL [Glucophage] 1,000 mg PO BID 06/09/21 [History] Cyclobenzaprine [Flexeril] 5 - 10 mg PO HS PRN 09/21/21 [History] Finasteride [Proscar] 5 mg PO DAILY 09/21/21 [History] Tamsulosin [Flomax] 0.4 mg PO DAILY 09/21/21 [History] Cefpodoxime Proxetil [Vantin] 200 mg PO Q12HR #14 tab 09/23/21 [Rx] Follow up Appointment(s)/Referral(s): Devonte Juarez MD [Primary Care Provider] - 1-2 days Patient Instructions/Handouts: Urinary Tract Infection in Men (DC) Activity/Diet/Wound Care/Special Instructions: Activity: as tolerated Diet: carb consistent Special Instructions: Please follow-up with your urologist from [place] Consider cranberry extract supplement Thank you for allowing trusting us with your care, we wish you well on your journey to better health. Discharge/Stand Alone Forms: Work/School Release / Restrict Discharge Disposition: HOME SELF-CARE
== END 2021-09-23 17:52 | disposition home or self-care (01) | DRG 872 ==
LOC: EC 18:27 → UNDOADMOB 09-21 02:22 → 6NMEDSUR 09-21 02:22 → 4SSUR 09-21 02:22 → 6NMEDSUR 09-21 08:52
PROVIDERS: ADMIT Internal Medicine; ATTEND Internal Medicine
DX: A41.59 Other Gram-negative sepsis (principal); N39.0 Urinary tract infection, site not specified; Z68.42 Body mass index [BMI] 45.0-49.9, adult; E11.65 Type 2 diabetes mellitus with hyperglycemia; E66.9 Obesity, unspecified; E78.5 Hyperlipidemia, unspecified; I10 Essential (primary) hypertension; Z87.891 Personal history of nicotine dependence; Z87.440 Personal history of urinary (tract) infections; Z79.84 Long term (current) use of oral hypoglycemic drugs; Z79.899 Other long term (current) drug therapy
CPT/HCPCS: 36415; 80048; 80053; 81001; 83605; 83735; 83880; 84100; 84484; 85025; 85027; 87040; 87077; 87086; 87186; 93005; 94760; 96365; 96366; 96372; 99291

== ENCOUNTER 2021-11-04 23:49 | Emergency (ER) | payer BC ==
[2021-11-05 00:17] VITALS: BP 164/91; PULSE 66; RESP 20; TEMP 98.2
[2021-11-05] MEDS ORDERED: ACETAMINOPHEN TAB 500 MG TAB PO STA (00:44)
--- NOTE | 2021-11-05 00:47 | ED ---
Lower Extremity Injury HPI - General Chief Complaint: Extremity Injury, Lower Stated Complaint: rt foot injury Time Seen by Provider: 11/05/21 00:16 Source: patient Mode of arrival: ambulatory Limitations: no limitations - History of Present Illness Initial Comments: This is a pleasant 56-year-old male who was loading something to his car. Kendall colon states he turned and stepped down onto his right foot and felt a pop in the lateral aspect of his foot. Patient states he had sharp pain which is still present. Pain exacerbated by ambulation, palpation, alleviated by rest, no radiation. Located in the lateral aspect of foot. Occurred just prior to arrival. No headache, no fever or chills, no changes in vision or hearing, no sore throat or difficulty with speech, no neck pain, no chest pain or shortness of breath, no abdominal pain, no nausea or vomiting, no changes in urination or bowel movements, no numbness or tingling, no skin rashes or lesions. Past medical, surgical, social, and family history reviewed. - Related Data Home Medications Medication Instructions Recorded Confirmed Atorvastatin [Lipitor] 10 mg PO DAILY 08/11/15 09/21/21 Losartan Potassium 100 mg PO DAILY 07/02/17 09/21/21 Pioglitazone [Actos] 30 mg PO DAILY 07/02/17 09/21/21 Semaglutide [Rybelsus] 14 mg PO DAILY 06/09/21 09/21/21 Testosterone [Androgel 1.62% Gel 1 pump TOPICAL DAILY 06/09/21 09/21/21 Pump] glipiZIDE [Glucotrol] 5 mg PO DAILY 06/09/21 09/21/21 metFORMIN HCL [Glucophage] 1,000 mg PO BID 06/09/21 09/21/21 Cyclobenzaprine [Flexeril] 5 - 10 mg PO HS PRN 09/21/21 09/21/21 Finasteride [Proscar] 5 mg PO DAILY 09/21/21 09/21/21 Tamsulosin [Flomax] 0.4 mg PO DAILY 09/21/21 09/21/21 Previous Rx's Medication Instructions Recorded Cefpodoxime Proxetil [Vantin] 200 mg PO Q12HR #14 tab 09/23/21 Allergies Allergy/AdvReac Type Severity Reaction Status Date / Time dapagliflozin [From [facility]] AdvReac UTI Verified 11/05/21 00:17 Review of Systems ROS Statement: Those systems with pertinent positive or pertinent negative responses have been documented in the HPI. ROS Other: All systems not noted in ROS Statement are negative. Past Medical History Past Medical History: Diabetes Mellitus, Hyperlipidemia, Hypertension Additional Past Medical History / Comment(s): NIDDM type II. Arthritis entire spine. UTIs. Diverticulos. History of Any Multi-Drug Resistant Organisms: C-DIFF Date of last positivie culture/infection: 2017 MDRO Source:: stool Past Surgical History: Adenoidectomy, Appendectomy, Tonsillectomy Additional Past Surgical History / Comment(s): circumsions, colonoscopy with benign polypectomy Past Anesthesia/Blood Transfusion Reactions: No Reported Reaction Past Psychological History: No Psychological Hx Reported Smoking Status: Former smoker Past Alcohol Use History: Rare Past Drug Use History: None Reported - Past Family History Mother Family Medical History: Cancer, Diabetes Mellitus Additional Family Medical History / Comment(s): ca: colon. Mother of diabetic complications in her 60s. Father Family Medical History: Myocardial Infarction ([place]), Renal Disease Additional Family Medical History / Comment(s): from [place] at the age of 44 yrs, "[place] was d/t an illness, that caused the heart attack", kidney disease General Exam - General Exam Comments Initial Comments: Obese male in minimal distress secondary to right foot pain. Patient does not appear to be ill or toxic. No other injuries. Limitations: no limitations General appearance: alert, in no apparent distress Head exam: Present: atraumatic, normocephalic, normal inspection Eye exam: Present: normal appearance, EOMI Neck exam: Present: normal inspection Respiratory exam: Present: normal lung sounds bilaterally. Absent: respiratory distress, wheezes, rales, rhonchi, stridor Cardiovascular Exam: Present: regular rate, normal rhythm, normal heart sounds. Absent: systolic murmur, diastolic murmur, rubs, gallop, clicks GI/Abdominal exam: Present: soft. Absent: tenderness Extremities exam: Present: normal inspection, full ROM, tenderness (Patient has tenderness near the proximal fifth metatarsal on the right. No break in skin integrity. No crepitus. Pedal pulses are normal. No tenderness elsewhere.), normal capillary refill, other (Full range of motion with regards to phalanges, foot, and ankle. No tenderness to the ankle. No distal or proximal tenderness otherwise.). Absent: pedal edema Course Vital Signs 11/05/21 00:14 Temperature 98.2 F Pulse Rate 66 Respiratory 20 Rate Blood Pressure 164/91 O2 Sat by Pulse 100 Oximetry Medical Decision Making - Medical Decision Making We'll treat conservatively with RICE. Noel wrap applied, postop shoe applied. Patient has a walker at home he can use for a few days. Patient does take [id number] ibuprofen. I did advise acetaminophen. Patient was given follow-up information for orthopedics. Again, discussed possibly of occult fracture. Patient voiced understanding. All questions answered. Patient was told to return to the ER for any signs or symptoms worsen. Told to return immediately if any other problems arise. All questions answered. Treatment plan discussed. Patient in agreement Every effort has been made to ensure accuracy of this dictation. However, due to the limitations of electronic medical records and dictation devices, errors in charting still occur. [employer] Dr. Tristan - Radiology Data Radiology results: pending, image reviewed Evidence of acute pathology as read by me. Did discuss the possibility of occult fracture with the patient. Did discuss the possibility of ligamentous injury. Patient has extensive degenerative change on x-ray. Patient also has a significant calcaneal spur. Awaiting radiology interpretation Disposition Clinical Impression: Right foot sprain Disposition: HOME SELF-CARE Condition: Good Instructions (If sedation given, give patient instructions): Foot Sprain (ED) Additional Instructions: Square the postoperative shoe as discussed. Use [id number] Tylenol for pain control. Apply ice 20 minutes on and off for times daily. Follow-up with the orthopedic physician as directed. Follow-up with your regular physician as directed. Return to the ER immediately if any symptoms worsen, new symptoms arise, or any other problems develop. Is patient prescribed a controlled substance at d/c from ED?: No Referrals: Sergio Chavez MD [STAFF PHYSICIAN] - 11/09/21 Time of Disposition: 00:46
--- NOTE | 2021-11-05 01:05 | XR ---
EXAMINATION TYPE: XR foot complete RT DATE OF EXAM: 11/05/2021 COMPARISON: NONE HISTORY: Pain TECHNIQUE: 3 views FINDINGS: There is plantar and Achilles calcaneal spurring. Metatarsals are intact. No fracture nor d islocation. IMPRESSION: Calcaneal spurring. No fracture.
== END 2021-11-05 01:09 | disposition home or self-care (01) ==
LOC: EC 23:49
DX: S93.601A Unspecified sprain of right foot, initial encounter (principal); E11.9 Type 2 diabetes mellitus without complications; E78.5 Hyperlipidemia, unspecified; I10 Essential (primary) hypertension; Z87.891 Personal history of nicotine dependence; Z88.8 Allergy status to other drugs, medicaments and biological substances; W19.XXXA Unspecified fall, initial encounter
CPT/HCPCS: 99283

== ENCOUNTER → 2024-04-17 | Outpatient (CLI) | payer OTHER ==
--- NOTE | 2024-04-17 15:26 | XR ---
EXAMINATION TYPE: XR lumbar spine 2 or 3V DATE OF EXAM: 04/17/2024 2:58 PM COMPARISON: None CLINICAL INDICATION: Male, 59 years old with history of SPRAIN OF LIGAMENTS OF LUMBAR SPINE S33.5XXA; PHH, pain TECHNIQUE: XR lumbar spine 2 or 3V - Frontal, lateral and coned in L5-S1 lateral views of the spine. FINDINGS: No evidence of any acute osseous pathology. No evidence of loss of vertebral body height i s seen. There is straightened alignment of the lumbar vertebral bodies. Scattered disc space narrowin g. Multilevel marginal osteophyte formation throughout the visualized spine. There is facet joint art hropathy throughout the spine. Scattered at least mild neural foraminal stenosis. IMPRESSION: 1. No acute fracture. 2. Moderate multilevel disc degeneration. [facility], , 04/17/2024 3:23 PM
== END | disposition home or self-care (01) ==
LOC: RADXRMAIN 14:44
PROVIDERS: ATTEND Emergency Medicine
DX: M51.360 Other intervertebral disc degeneration, lumbar region with discogenic back pain only (principal)
CPT/HCPCS: 72100